=== PATIENT | male | born 1930 | race Caucasian/White ===

== ENCOUNTER 2016-11-26 11:22 | Inpatient (IN) | payer OTHER, BC ==
[~2016-11-26] VITALS: Ht 171.4 cm; Wt 66.7 kg
[~2016-11-26 11:22] MED LIST: ASCA500 PO; ASPEC325 PO; ATOR-22 PO; CHOL4POW6 PO; LISI-461 PO; NAPR1TAB48 PO; VIT B-12 PO
[2016-11-26] MEDS ORDERED: ONDANSETRON INJ 8 MG in DEXTROSE 5% 50ML 50 ML IV PRN (11:30)
[2016-11-26] MEDS ORDERED: ACETAMINOPHEN 325 MG TAB PO PRN (11:30)
[2016-11-26 12:00] VITALS: BP 151/120; TEMP 36.9
[2016-11-26 12:58] LABS: BASO % 0.2 %; BASO ABS # 0.02 K/uL (0-0.2); EOS % 0.9 %; HEMATOCRIT 32.3 % (42-52); IG% 0.1 %; LYMPH ABS # 1.82 K/uL (1.2-3.4); MEAN CORPUSCULAR HEMOGLOBIN 30.6 pg (25-34); MEAN PLATELET VOLUME 9.4 fL (7.4-10.4); MONO % 8.4 %; NEUT % 72.4 %; PLATELET COUNT 154 K/uL (130-400); RED BLOOD COUNT 3.33 M/uL (4.7-6.1); WHITE BLOOD COUNT 10.12 K/uL (4.8-10.8)
[2016-11-26 12:59] LABS: COMPLETE YES; MEAN CORPUSCULAR HGB CONC 31.6 g/dl (32-36)
[2016-11-26 13:08] LABS: INR 2.8 (0.9-1.1); PROTHROMBIN TIME (PATIENT) 31.3 SECONDS (9.0-12.0)
[2016-11-26 13:27] LABS: ALT/SGPT 40 U/L (12-78); AST/SGOT 25 U/L (15-37); BLOOD UREA NITROGEN 48 mg/dl (7-18); BUN/CREATININE RATIO 26.4 (10-20); CALCIUM 9.3 mg/dl (8.5-10.1); CARBON DIOXIDE 32 mmol/L (21-32); CHLORIDE 109 mmol/L (98-107); GLUCOSE 98 mg/dl (70-99); MAGNESIUM 2.3 mg/dl (1.8-2.4); POTASSIUM 4.3 mmol/L (3.5-5.1); SODIUM 146 mmol/L (136-145)
[2016-11-26 13:37] LABS: ALB/GLOB RATIO 1.1 (0.9-2); ALKALINE PHOSPHATASE 51 U/L (45-117)
--- NOTE | 2016-11-26 14:03 | DIAGNOSTIC IMAGING REPORT ---
CT HEAD WITHOUT CONTRAST (CT) CLINICAL HISTORY: Acute change in mental status COMPARISON STUDY: 05/13/2011 TECHNIQUE: Axial CT of the brain is performed from the vertex to the skull base. IV contrast was not administered for this examination. CT DOSE: 537.48 mGy.cm FINDINGS: No intra or extra-axial mass lesions are visualized. There is no CT evidence of acute cortical infarction. There is no evidence of midline shift. There is no acute hemorrhage. No calvarial fractures are visualized. There are patchy white matter hypodensities likely on a small vessel basis. There is no evidence of pathologic ventricular dilatation. There is no evidence of acute sinusitis IMPRESSION: No acute intracranial findings Electronically signed by: Gavino Vang M.D. 11/26/2016 2:02 PM Dictated Date/Time: 11/26/2016 1:57 PM
--- NOTE | 2016-11-26 14:18 | DIAGNOSTIC IMAGING REPORT ---
PA CHEST WITH ABDOMINAL SERIES CLINICAL HISTORY: Lower abdominal pain. FINDINGS: A PA chest radiograph is compared to study dated 02/15/2008. The examination is degraded by patient rotation. A 2-lead cardiac pacemaker is unchanged in position and partially obscures the left upper chest. The patient is status post midline sternotomy. The heart is enlarged and there is atherosclerotic calcification of the thoracic aorta. The pulmonary vasculature is noncongested. Emphysema and chronic interstitial thickening are similar to previous. There is no airspace consolidation or pleural effusion. No pneumothorax is seen. The skeletal structures are osteopenic. Degenerative change is seen throughout the thoracic spine. Supine and erect abdominal radiographs are correlated with abdominal CT dated 01/25/2014. Cholecystectomy clips are identified in the right upper quadrant. Numerous surgical clips are seen in the pelvis. There is a nonobstructed abdominal bowel gas pattern. No evidence of intraperitoneal free air is seen. There is advanced atherosclerotic calcification of the abdominal aorta and pelvic arteries. There is mild lumbosacral spondylosis and scoliosis. The bony pelvis appears intact. IMPRESSION: 1. Cardiomegaly and cardiac pacemaker. There is no radiographic evidence of congestive failure. 2. Emphysema. No airspace consolidation or pleural effusion is seen. 3. Nonobstructed abdominal bowel gas pattern. Electronically signed by: Bienvenido Ledbetter M.D. 11/26/2016 2:16 PM Dictated Date/Time: 11/26/2016 2:13 PM
[2016-11-26 15:01] VITALS: BP 182/62; PULSE 80
[2016-11-26 15:41] VITALS: Ht 171.4 cm; Wt 66.7 kg
[2016-11-26 15:57] VITALS: BP 149/69; PULSE 51; TEMP 36.6; O2SAT 96
[2016-11-26] MEDS: SODIUM CHLORIDE 0.9% 1000ML 1,000 ML IV SCH (16:23)
[2016-11-26] MEDS: WARFARIN SOD 4 MG TAB PO SCH (19:56)
[2016-11-26] MEDS: CARBIDOPA/LEVODOPA 25/100MG TAB PO SCH (19:57)
[2016-11-26] MEDS: MEMANTINE 10 MG TAB PO SCH (19:57)
--- NOTE | 2016-11-26 21:51 | HISTORY & PHYSICAL EXAMINATION ---
DATE OF ADMISSION: 11/26/2016 An 86-year-old male, admitted directly from my office with mental status changes. HISTORY OF PRESENT ILLNESS: The patient with multiple medical problems including coronary artery disease with history of 4-vessel coronary artery bypass graft, arterial hypertension, paroxysmal atrial fibrillation, bradyarrhythmia requiring pacemaker, history of prostate cancer status post radical prostatectomy, dementia and Parkinson's disease. He is also treated for arterial hypertension. The patient was brought to the office today by his , daughter and his caregiver. Over the last couple of days, his condition has deteriorated rapidly. His mental status has changed. He is very bradykinetic, not responding and completely confused. He was brought to the office because he was having diarrhea. His stated that he is incontinent of stool. They cannot keep him clean. They have to change him many times. She tried to give him an enema because she thought initially that he was constipated, but he would not cooperate. He was uncomfortable. He was having pain in the rectal area. According to the family, his condition has been deteriorating, both physically and mentally. He has not been able to ambulate. He needs the assistance of at least 2 people for minor tasks such as sitting or standing up. He needs help to get dressed and undressed. There has been no fever. No chills. He does not seem to be in any distress. He has not had any chest pain or any shortness of breath that is noticeable. He was having some lower abdominal pain. He has some pain in the rectal area. He is having difficulty sitting down. No urinary problem. There has been no suspicion of any pain in his back or extremities. I have been seeing him every week for the last 3 or 4 weeks. He has developed an ulcer on the right external malleolar area. We have been changing the dressing in the office. The ulcer has improved markedly and is almost completely healed. In the office, patient required the assistance of 3 people even to help him stand up and walk in the hallway. In view of the deterioration of his condition, arrangements were made for admission. PAST MEDICAL HISTORY: 1. Coronary artery disease, diagnosed back in 1989. 2. Coronary artery bypass graft; 4 vessels, done on 01/24/1991. He had a sequential saphenous vein graft to the PDA and posterior ventricular branch of the RCA. He had a left inferior epigastric artery to the obtuse marginal branch of the circumflex and a REIS to his LAD; this was done at [facility]. 3. Arterial hypertension, treated since approximately 1979. 4. History of nephrolithiasis back in the 1970s, with no recent episodes. 5. Hyperlipidemia, treated and well-controlled. His lipid profile has been in excellent range. 6. Bradyarrhythmia, requiring a pacemaker in 2007. 7. Paroxysmal atrial fibrillation; treated and controlled. He is on chronic anticoagulation with Coumadin. 8. Carcinoma of the prostate in 1993; had a radical prostatectomy at [facility]. 9. Laparoscopic cholecystectomy in 2000. 10. 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 11. Dementia, first detected about 2010 and his condition has been deteriorating. Recently, the deterioration has been much more rapid and pronounced. 12. Parkinson's disease, treated for the last 4-5 years. SOCIAL HISTORY: He is , has 2 children. No smoking, no alcohol. No excessive coffee, tea or soft drinks. He is retired. 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 FAMILY HISTORY: His mother at age 69, had dementia and she was diabetic. She had a shunt placed. She may had normal pressure hydrocephalus, I am not really sure. Father at age 76, had leukemia. He has a total of 5 siblings, half siblings and full siblings. One half sister is 95, still living independently. One brother at age 96, had dementia. One brother is 86, doing well. One sister is 82 and is doing well. Children are doing well. ALLERGIES: None. CURRENT MEDICATIONS: Include; 1. Atenolol 50 mg daily. 2. Lisinopril 10 mg daily. 3. Lipitor 10 mg daily. 4. Imdur 30 mg daily. 5. Coumadin 7.5 mg, he takes 1 tablet five days a week and 1.5 tablets on Tuesdays and Fridays. 6. Sinemet 25/100 two tablets 3 times a day. 7. Namenda 10 mg twice a day. 8. Aricept 10 mg daily. 9. Furosemide 40 mg daily. 10. Potassium chloride 10 mEq twice a day. 11. Nitrostat 0.4 mg daily. 12. Vitamin D3 1000 international units daily. 13. CoQ10 100 mg tablets, he takes four a day. 14. Aspirin 81 mg daily. 15. Alba-C 1000-51 daily. 16. Emmet-3 1000 mg daily. 17. Vitamin B12 500 mcg daily. REVIEW OF SYSTEMS: He does not seem to be in any distress, but definitely his mental status has deteriorated significantly. He does not answer questions. He is very bradykinetic. He denied any headache. He is definitely having problem with his balance and equilibrium. No chest pain. No shortness of breath. His appetite has declined. No nausea, no vomiting. He has lower abdominal pain as noted. Has liquid stool. No urinary problem. No pain in his back or extremities. PHYSICAL EXAMINATION: GENERAL: Well-developed, in no acute distress. His recorded weight is 66.7 kgs. His height is recorded as 171.5 cm, but actually his measurement in the office is more close to 167 cm. VITAL SIGNS: On arrival to the hospital, his first set of vital signs showed a blood pressure of 151/120, pulse was in the 50s, respirations 18, temperature 36.9 and oxygen saturation was 96% on room air. SKIN: Warm and dry. No rash. No bruising. HEENT: He usually wears glasses. No evidence of any mucosal abnormalities. Ears were normal. NECK: Supple and nontender. No adenopathy, no thyromegaly, no JVD. No carotid bruits. CHEST: Scar from prior bypass surgery. Pacemaker is in place. HEART: Regular heart sounds. Bradycardic. No evident murmur, rub or gallop. LUNGS: Clear. ABDOMEN: Soft and nontender, without organomegaly or masses. BACK: No spinal tenderness. EXTREMITIES: No edema, clubbing or cyanosis. The ulcer on the right external malleolar area is almost completely healed. Absent posterior tibialis pulses. Good dorsalis pedis pulses. NEUROLOGIC: He is awake and responsive, but markedly bradykinetic. He has problem with his balance and equilibrium. No evidence of any lateralized deficits, but we are dealing more with generalized weakness. He does have problem with his gait, usually related to his Parkinson's disease. GENITALIA: Normal. RECTAL: He had evidence of fecal impaction. Soft, liquidy stool was oozing around the fecaloma. ADMISSION LABORATORY TESTS: WBC count 10,120, hemoglobin 10.2, hematocrit 32.3 and platelet count 154,000. Prothrombin time 31.3, INR 2.8. Sodium 146, potassium 4.3, chloride 109, CO2 32, BUN 48, creatinine 1.8, glucose 98, calcium 9.3, magnesium 2.3, total bilirubin 0.9, AST 25, ALT 40, alkaline phosphatase 51, total protein 7.3, albumin 3.8, globulin 3.5, TSH 3.62, T4 7.9. His electrocardiogram showed sinus bradycardia, rate in the 50s. I am not really sure at this point what his pacemaker setting is, need to check on that. He does have diffuse ST segment T-wave abnormality. The tracing was in very poor quality because of the tremor. IMAGING STUDIES: Included a CT scan of the head without contrast which did not really show any significant abnormalities. His abdominal x-rays and chest x-rays showed cardiomegaly and a pacemaker. There was no congestive heart failure. He had evidence of emphysema, but no evidence of any consolidation. No evidence of any bowel obstruction. ASSESSMENT: 1. Mental status changes. 2. Dehydration. 3. Acute renal failure, superimposed on chronic kidney disease. 4. Coronary artery disease with a history of 4-vessel coronary artery bypass graft. 5. Paroxysmal atrial fibrillation. 6. Bradyarrhythmias requiring permanent pacemaker. 7. Dementia. 8. Hyperlipidemia. 9. Parkinson's disease. 10. History of prostate cancer. 11. History of type 2 diabetes mellitus, but has not required any drug therapy. 12. Ulcer, right lateral malleolar area, healing. 13. Fecaloma. 14. What the family was thinking that he has diarrhea actually is the oozing of soft liquid stool around the fecaloma. PLAN: The patient was admitted to a medical bed. His resuscitation level was discussed with his and his daughter. He does not desire any intubation or mechanical ventilation. Otherwise, he will be treated according to his wishes. All his laboratory tests were ordered. After I did his rectal examination at the hospital and in view of the presence of the fecaloma, I digitally evacuated the impaction. He was started on IV fluids with normal saline solution. He was continued on his oral medications, except for the Lasix and potassium. We will be monitoring his renal function and his electrolytes. With the hydration, we will see how his condition improves. Also checking urine for culture, sensitivity and urinalysis. I have to check on the settings in his pacemaker to make sure that the settings and what we see on the tracings coincide. Overall, his condition has been deteriorating. He requires a lot of attention and care at home. He lives at home with his . His daughter spends a lot of time with them. His grandson also spends a lot time with him. He has a caregiver. His son-in-law is also participating in his care. The plan at this time is to hydrate him. Try to determine the cause for his mental status changes. See how much improvement we get. Decide if he needs rehabilitation. As far as the ulcer on his right external malleolar area, we will continue the treatment. Actually, it is almost completely healed. Prior to that, it was quite deep and it was inflamed. All the findings, the workup and the plan of care were discussed with the patient, his and his daughter.
[2016-11-26 23:25] VITALS: BP 118/68; PULSE 50; TEMP 36.9; O2SAT 100
[2016-11-27] MEDS: SODIUM CHLORIDE 0.9% 1000ML 1,000 ML IV SCH ×3 (02:38→17:49)
[2016-11-27 06:22] LABS: BASO % 0.3 %; BASO ABS # 0.02 K/uL (0-0.2); COMPLETE YES; EOS % 3.2 %; HEMATOCRIT 29.7 % (42-52); IG% 0.1 %; LYMPH % 34.5 %; MEAN CELL VOLUME 97.4 fL (80-100); MEAN CORPUSCULAR HEMOGLOBIN 31.8 pg (25-34); MEAN CORPUSCULAR HGB CONC 32.7 g/dl (32-36); MEAN PLATELET VOLUME 9.8 fL (7.4-10.4); MONO % 10.2 %; NEUT % 51.7 %; PLATELET COUNT 126 K/uL (130-400); RED BLOOD COUNT 3.05 M/uL (4.7-6.1); WHITE BLOOD COUNT 7.54 K/uL (4.8-10.8)
[2016-11-27 06:26] LABS: INR 2.7 (0.9-1.1); PROTHROMBIN TIME (PATIENT) 29.7 SECONDS (9.0-12.0)
[2016-11-27 06:51] LABS: BUN/CREATININE RATIO 28.5 (10-20); CALCIUM 8.9 mg/dl (8.5-10.1); CREATININE 1.4 mg/dl (0.60-1.40); MAGNESIUM 2.2 mg/dl (1.8-2.4); POTASSIUM 3.8 mmol/L (3.5-5.1)
[2016-11-27 07:50] VITALS: BP 160/61; PULSE 50; TEMP 36.4; O2SAT 100
--- NOTE | 2016-11-27 07:58 | Clinical Documentation Query ---
QUERY 1 OF [address] CHERRY CLARK, In your clinical opinion is this patient being managed for: ( ) Metabolic encephalopathy ( ) Other explanation of clinical findings (Please Explain) ( ) Unable to determine (Please Define) ( ) Need to Discuss ( x) Not Agree The medical record reflects the following clinical findings, treatment, and risk factors. Clinical Indicators: 86 yo male presenting from physician office due to mental status changes and acute renal failure. Documentation reflects that pt is completely confused. CT head showed no acute findings. Na 146, BUN 48, Cr 1.80, BP 151/120 Treatment: IV fluids, CT head, UA and c/s, serial PRP's/CBC's and PT's, hold lasix and potassium Risk Factors: preexisting dementia, dehydration, MANFRED, hypertension In your clinical opinion is this patient being managed for: ( ) Chronic kidney disease, stage 2-3 ( ) Other explanation of clinical findings (Please Explain) ( ) Unable to determine (Please Define) ( ) Need to Discuss (x ) Not Agree The medical record reflects the following clinical findings, treatment, and risk factors. Clinical Indicators: Documentation reflects pt has chronic kidney disease. Review of GFR over the past 2 years showed range of 42.4-62.9. Treatment: monitor PRP's, treat comorbid conditions Risk Factors: age, CAD, HTN, A fib Please clarify and document your clinical opinion in the progress notes and discharge summary. Terms such as "probable", "suspected", "likely", "questionable", "possible", or "still to be ruled out" are acceptable. IF IN AGREEMENT, YOU MUST DOCUMENT ABOVE DIAGNOSTIC STATEMENT IN DAILY PROGRESS NOTES AND DISCHARGE SUMMARY. This document is not part of the patient's record. Thank You, Chery Eisenberg RN [phone]
[2016-11-27] MEDS: ATORVASTATIN 10 MG TAB PO SCH (07:59)
[2016-11-27] MEDS: CARBIDOPA/LEVODOPA 25/100MG TAB PO SCH ×2 (07:59→14:21)
[2016-11-27] MEDS: DONEPEZIL HCL 10 MG TAB PO SCH (07:59)
[2016-11-27] MEDS: LISINOPRIL 10 MG TAB PO SCH (07:59)
[2016-11-27] MEDS: ASPIRIN 81 MG ECTAB PO SCH (08:00)
[2016-11-27] MEDS: POLYETHYLENE (MIRALAX) 17 GM PACK PO SCH (08:00)
[2016-11-27] MEDS: CHOLECALCIFEROL 1000 INTER.UNIT TAB PO SCH (08:01)
[2016-11-27] MEDS: ISOSORBIDE MONONITRATE 30 MG TABCR PO SCH (08:01)
[2016-11-27] MEDS: MEMANTINE 10 MG TAB PO SCH (08:01)
[2016-11-27 15:37] VITALS: BP 138/73; PULSE 50; TEMP 36.5; O2SAT 100
[2016-11-27 16:00] VITALS: O2SAT 100
[2016-11-27] MEDS: WARFARIN SOD 4 MG TAB PO SCH (16:09)
[2016-11-27 23:56] VITALS: BP 116/66; PULSE 70; TEMP 37; O2SAT 98
[2016-11-28] MEDS: SODIUM CHLORIDE 0.9% 1000ML 1,000 ML IV SCH ×3 (04:04→23:06)
--- NOTE | 2016-11-28 04:04 | PROGRESS NOTE ---
DATE: 11/27/2016 An 86-year-old male, admitted with multiple problems including mental status changes, dehydration, acute renal failure superimposed on chronic kidney disease, coronary artery disease, paroxysmal atrial fibrillation, dementia, Parkinson's disease and stool impaction. The patient was admitted. All his laboratory tests were ordered. He was disimpacted manually. Physical and occupational therapies were ordered. His mental status has improved. He is more communicative. He denied any discomfort. No headache. No dizziness. No chest pain, no shortness of breath. No abdominal pain, no nausea, no vomiting. He did have bowel movements. No urinary problem. No pain in his back or extremities. PHYSICAL EXAMINATION: GENERAL: Well-developed, in no distress. VITAL SIGNS: Blood pressure 160/61, pulse 50, respirations 16, temperature 36.4 and oxygen saturation 100% on room air. SKIN: Warm and dry. No rash. HEENT: He usually wears glasses. No mucosal abnormalities. NECK: No JVD, no adenopathy. HEART: Regular heart sounds. No evident murmur, rub or gallop. LUNGS: Clear. ABDOMEN: Soft and nontender. BACK: Evidence of kyphosis. EXTREMITIES: No edema, clubbing or cyanosis. LABORATORY TESTS: WBC count 7540, hemoglobin 9.7, hematocrit 29.7 and platelet count 126,000. Prothrombin time 29.7, INR 2.7. Sodium 145, potassium 3.8, chloride 111, CO2 30, BUN 40, creatinine 1.4, glucose 87, calcium 8.9 and magnesium 2.2. ASSESSMENT: 1. Mental status changes. 2. Dehydration. 3. Acute renal failure. 4. Dementia. 5. Parkinson's disease. 6. Paroxysmal atrial fibrillation. 7. Fecal impaction. PLAN: 1. Continuing the same medications. 2. Physical therapy was ordered. Occupational therapy was ordered. 3. Continue hydration. 4. His BUN and creatinine have improved. 5. The ulcer on his right lateral malleolar area was treated. 6. I anticipate that the patient will return home after his acute hospitalization.
[2016-11-28 04:32] LABS: URINE APPEARANCE CLEAR (CLEAR); URINE BILIRUBIN NEG (NEG); URINE COLOR YELLOW; URINE NITRITE NEG (NEG); URINE SPECIFIC GRAVITY 1.011 (1.000-1.030); UROBILINOGEN NEG (NEG)
[2016-11-28 04:33] LABS: MANUAL MICROSCOPIC REQUIRED? NO; REVIEW REQ? NO
[2016-11-28 06:25] LABS: BASO % 0.2 %; BASO ABS # 0.02 K/uL (0-0.2); COMPLETE YES; EOS % 3.7 %; HEMATOCRIT 29.9 % (42-52); IG% 0.2 %; LYMPH ABS # 3.06 K/uL (1.2-3.4); MEAN CELL VOLUME 95.8 fL (80-100); MEAN CORPUSCULAR HEMOGLOBIN 32.1 pg (25-34); MEAN CORPUSCULAR HGB CONC 33.4 g/dl (32-36); MONO % 8.4 %; NEUT % 55.5 %; PLATELET COUNT 140 K/uL (130-400); RED BLOOD COUNT 3.12 M/uL (4.7-6.1); WHITE BLOOD COUNT 9.56 K/uL (4.8-10.8)
[2016-11-28 06:39] LABS: INR 2.9 (0.9-1.1); PROTHROMBIN TIME (PATIENT) 32.4 SECONDS (9.0-12.0)
[2016-11-28 06:58] LABS: BUN/CREATININE RATIO 21.8 (10-20); CALCIUM 8.7 mg/dl (8.5-10.1); CREATININE 1.5 mg/dl (0.60-1.40); POTASSIUM 3.9 mmol/L (3.5-5.1)
[2016-11-28 07:15] VITALS: BP_SYST 178; BP_SYST 192; BP_DIAS 67; BP_DIAS 70; PULSE 90; TEMP 36.7; O2SAT 100
[2016-11-28 09:05] VITALS: BP 112/57
[2016-11-28] MEDS: ATORVASTATIN 10 MG TAB PO SCH (09:05)
[2016-11-28] MEDS: CARBIDOPA/LEVODOPA 25/100MG TAB PO SCH ×4 (09:05→19:43)
[2016-11-28] MEDS: ASPIRIN 81 MG ECTAB PO SCH (09:05)
[2016-11-28] MEDS: MEMANTINE 10 MG TAB PO SCH ×3 (09:05→19:43)
[2016-11-28] MEDS: CHOLECALCIFEROL 1000 INTER.UNIT TAB PO SCH (09:06)
[2016-11-28] MEDS: POLYETHYLENE (MIRALAX) 17 GM PACK PO SCH (09:06)
[2016-11-28] MEDS: LISINOPRIL 10 MG TAB PO SCH (09:06)
[2016-11-28] MEDS: DONEPEZIL HCL 10 MG TAB PO SCH (09:06)
[2016-11-28] MEDS: ISOSORBIDE MONONITRATE 30 MG TABCR PO SCH (09:06)
[2016-11-28 15:16] VITALS: BP 112/56; PULSE 58; TEMP 36.7; O2SAT 98
[2016-11-28] MEDS: WARFARIN SOD 4 MG TAB PO SCH (16:03)
[2016-11-28 23:01] VITALS: BP 148/69; PULSE 62; TEMP 36.8; O2SAT 96
[2016-11-29 05:39] LABS: BASO % 0.3 %; BASO ABS # 0.03 K/uL (0-0.2); COMPLETE YES; EOS % 4.7 %; IG% 0.1 %; LYMPH % 20.8 %; LYMPH ABS # 2.17 K/uL (1.2-3.4); MEAN CELL VOLUME 95.6 fL (80-100); MEAN CORPUSCULAR HEMOGLOBIN 32.1 pg (25-34); MEAN CORPUSCULAR HGB CONC 33.6 g/dl (32-36); MEAN PLATELET VOLUME 10.1 fL (7.4-10.4); MONO % 7.4 %; NEUT % 66.7 %; PLATELET COUNT 138 K/uL (130-400); RED BLOOD COUNT 2.93 M/uL (4.7-6.1); WHITE BLOOD COUNT 10.42 K/uL (4.8-10.8)
[2016-11-29 05:49] LABS: INR 2.8 (0.9-1.1); PROTHROMBIN TIME (PATIENT) 31.6 SECONDS (9.0-12.0)
[2016-11-29 06:13] LABS: BUN/CREATININE RATIO 19.6 (10-20); CALCIUM 8.7 mg/dl (8.5-10.1); CREATININE 1.2 mg/dl (0.60-1.40); POTASSIUM 3.7 mmol/L (3.5-5.1)
[2016-11-29 07:14] VITALS: BP 134/71; PULSE 69; TEMP 36.4; O2SAT 94
[2016-11-29] MEDS: MEMANTINE 10 MG TAB PO SCH ×2 (08:36→20:12)
[2016-11-29] MEDS: CARBIDOPA/LEVODOPA 25/100MG TAB PO SCH ×3 (08:36→20:13)
[2016-11-29] MEDS: ATORVASTATIN 10 MG TAB PO SCH (08:37)
[2016-11-29] MEDS: ISOSORBIDE MONONITRATE 30 MG TABCR PO SCH (08:37)
[2016-11-29] MEDS: ASPIRIN 81 MG ECTAB PO SCH (08:37)
[2016-11-29] MEDS: POLYETHYLENE (MIRALAX) 17 GM PACK PO SCH (08:37)
[2016-11-29] MEDS: LISINOPRIL 10 MG TAB PO SCH (08:37)
[2016-11-29] MEDS: DONEPEZIL HCL 10 MG TAB PO SCH (08:37)
[2016-11-29] MEDS: CHOLECALCIFEROL 1000 INTER.UNIT TAB PO SCH (08:38)
[2016-11-29] MEDS: SODIUM CHLORIDE 0.9% 1000ML 1,000 ML IV SCH ×2 (08:38→19:16)
[2016-11-29 14:57] VITALS: BP 102/64; PULSE 102; TEMP 36.8; O2SAT 93
[2016-11-29] MEDS: WARFARIN SOD 4 MG TAB PO SCH (15:37)
--- NOTE | 2016-11-29 19:20 | PROGRESS NOTE ---
DATE: 11/29/2016 DATE: 11/29/2016. SUBJECTIVE: An 86-year-old male admitted with mental status changes. He also has Parkinson disease and dementia. He also has coronary artery disease, history of atrial fibrillation and has a permanent pacemaker. The patient was dehydrated. He also had fecal impaction. He was treated with IV fluids. Also, he was disimpacted. Physical and occupational therapies were ordered. He remains with significant functional decline. He does require 2-person to get him out of bed and moving him. He is resting. Denied any distress. No discomfort. No headache. No chest pain, no shortness of breath. No abdominal pain, no nausea, no vomiting. Poor appetite. No urinary problem. No pain in his back or extremities. PHYSICAL EXAMINATION: GENERAL: Well developed. He is resting. He was sitting in the chair. VITAL SIGNS: Blood pressure 134/71, pulse 69, respiration 18, temperature 36.4, oxygen saturation 94% on room air. SKIN: Warm and dry. No rash. HEAD, EYES, EARS, NOSE, AND THROAT: No mucosal abnormality. NECK: No JVD, no adenopathy. HEART: Regular heart sounds. LUNGS: Clear. ABDOMEN: Soft, nontender. BACK: No spinal tenderness. EXTREMITIES: No edema, clubbing, or cyanosis. Dressing lateral malleolar area because he has an ulcer at this spot. TODAY'S LABORATORY TESTS: WBC count 10,420, hemoglobin 9.4, hematocrit 28%, platelet count 138,000. Sodium 146, potassium 3.7, chloride 113, CO2 28, BUN 23, creatinine 1.2, glucose 87, calcium 8.7. His urine culture is negative. ASSESSMENT: 1. Mental status changes. 2. Dehydration. 3. Dementia. 4. Parkinson's disease. 5. Coronary artery disease. 6. Paroxysmal atrial fibrillation. 7. Permanent pacemaker. 8. Pressure ulcer right heel lateral malleolar area. PLAN: 1. Continuing the same medications. 2. Continue with his therapy. 3. Working on his discharge planning. Case management had a meeting yesterday with his daughter and his . Considering [facility]. We have to try to finalize his discharge planning because given his condition and declining functional ability the only 2 choices we have either enough help can be provided at home to keep him at home or the other option will be for extended care facility placement. Discussions will continue with the family and see what the best situation for them and for him.
[2016-11-29 22:58] VITALS: BP 115/54; PULSE 91; TEMP 36.9; O2SAT 98
[2016-11-30] MEDS: SODIUM CHLORIDE 0.9% 1000ML 1,000 ML IV SCH ×2 (05:27→17:03)
--- NOTE | 2016-11-30 07:11 | PROGRESS NOTE ---
DATE: 11/28/2016 SUBJECTIVE: An 86-year-old male admitted with mental status changes and dehydration. He has multiple other problems including coronary artery disease, paroxysmal atrial fibrillation, Parkinson's disease, dementia, and general debilitation. The patient was admitted. He was started on IV fluid. His creatinine was elevated to 1.8. He was continued on his oral medications. Physical and occupational therapies were ordered. The patient seems to be resting comfortably. No headache. No dizziness. Denied any chest pain. No shortness of breath. No abdominal pain, no nausea, and no vomiting. No problem with his bowel movement since he was admitted. When he was admitted, his family thought that he was having diarrhea, but actually he had fecal impaction and the stool was oozing around the fecaloma. He was disimpacted manually. Denied any urinary problem. No pain in his back. He does have an ulcer on his right lateral malleolar area and dressing is being applied. PHYSICAL EXAMINATION: GENERAL: Well developed in no distress. VITAL SIGNS: Blood pressure 178/70, pulse 90, respirations 18, temperature 36.7, and oxygen saturation 100% on room air. SKIN: Warm and dry. No rash. HEENT: He does have a newly noticed right subconjunctival hemorrhage in the right eye. He is not complaining of any problem related to that. NECK: Supple without lymph node or thyroid enlargement. No JVD. HEART: Regular heart sounds. No evident murmur, rub, or gallop. LUNGS: Clear. ABDOMEN: Soft and nontender. BACK: No spinal tenderness. EXTREMITIES: No edema, clubbing, or cyanosis. Dressing over the right lateral malleolar ulcer area. NEUROLOGIC: He is confused. His mental status is consistent with his dementia. He does not have any lateralized deficit. He needs 2 people assistant manager/embalmer to get him in and out of bed. When he stands up, he can walk with his walker. TODAY'S LABORATORY TESTS: WBC count 9560, hemoglobin 10, hematocrit 29.9, and platelet count 140,000. Sodium 145, potassium 3.9, chloride 111, CO2 of 25, BUN 33, creatinine 1.5, glucose 86, and calcium 8.7. INR 2.9. His urinalysis does not show any evidence of any infection. ASSESSMENT: 1. Mental status changes. 2. Dehydration. 3. Acute renal failure superimposed on chronic kidney disease. 4. Parkinson's disease. 5. Dementia. 6. Coronary artery disease. 7. Paroxysmal atrial fibrillation. 8. Pacemaker in place. 9. General debilitation. 10. New right conjunctival bleed, right eye. PLAN: 1. Continuing the same medications and IVs. 2. Continue therapies. 3. I spoke with his daughter this morning who was in his room. 4. There is a major issue as far as his mental condition, his physical ability and his debilitation and the fact that he needs assistance with almost every activity. It is misleading that when he gets up and using his walker, he can walk, but to get him in and out of bed, take him to the bathroom, care for him in every detail it has been taking a toll on the entire family. At home, his and his daughter, his son-in-law and his grandson all provide care for him. Also, they have a caregiver that comes in for a few hours every day 5 days a week. Case management consultation has been requested. We need to set up a meeting with Mrs. Sosa, his and with his daughter, Angie. They need to express all the issues regarding his care. He definitely will need more assistance at home for his sake and also to alleviate some of the pressure and the demands on his family. We will ask case management to meet with the daughter and the and take any necessary steps to help with that.
[2016-11-30 07:50] VITALS: BP 109/69; PULSE 54; TEMP 36.8; O2SAT 97
[2016-11-30] MEDS: CARBIDOPA/LEVODOPA 25/100MG TAB PO SCH ×3 (07:52→19:43)
[2016-11-30] MEDS: ISOSORBIDE MONONITRATE 30 MG TABCR PO SCH (07:52)
[2016-11-30] MEDS: ATORVASTATIN 10 MG TAB PO SCH (07:52)
[2016-11-30] MEDS: ASPIRIN 81 MG ECTAB PO SCH (07:52)
[2016-11-30] MEDS: DONEPEZIL HCL 10 MG TAB PO SCH (07:52)
[2016-11-30] MEDS: LISINOPRIL 10 MG TAB PO SCH (07:53)
[2016-11-30] MEDS: POLYETHYLENE (MIRALAX) 17 GM PACK PO SCH (07:53)
[2016-11-30] MEDS: MEMANTINE 10 MG TAB PO SCH ×2 (07:53→19:43)
[2016-11-30] MEDS: CHOLECALCIFEROL 1000 INTER.UNIT TAB PO SCH (07:53)
[2016-11-30 15:32] VITALS: BP 136/60; PULSE 88; TEMP 36.7; O2SAT 92
[2016-11-30] MEDS: WARFARIN SOD 4 MG TAB PO SCH (17:06)
--- NOTE | 2016-11-30 21:37 | PROGRESS NOTE ---
DATE: 11/30/2016 An 86-year-old male, admitted with mental status changes and dehydration. He has dementia and Parkinson's disease. He has coronary artery disease and atrial fibrillation. He is chronically anticoagulated with Coumadin. He also had acute renal failure superimposed on his chronic kidney disease. The patient was admitted. He was hydrated. Therapies were ordered. Overall, his condition has improved. His BUN and creatinine have improved. He is tolerating his therapies. He is able to ambulate with his walker. His confusion and findings related to his dementia persist. He denied any headache. No dizziness. No chest pain. No shortness of breath. No abdominal pain, nausea or vomiting. He is having bowel movements. No problem urinating. No pain in his back or extremities. PHYSICAL EXAMINATION: GENERAL: Well-developed, in no distress. VITAL SIGNS: Blood pressure 109/69, pulse 54, respirations 20, temperature 36.8 and oxygen saturation 97% on room air. SKIN: Warm and dry. No rash. HEENT: No mucosal abnormalities. NECK: No JVD. No adenopathy. HEART: Regular heart sounds. LUNGS: Clear. ABDOMEN: Soft and nontender. BACK: No spinal tenderness. EXTREMITIES: No edema, clubbing or cyanosis. ASSESSMENT: 1. Mental status changes. He is back to his baseline, especially in the afternoon. 2. Dehydration. 3. Acute renal failure. 4. Chronic kidney disease. 5. Coronary artery disease. 6. Dementia. 7. Parkinson's disease. PLAN: 1. Continuing his same medications. 2. We are working on getting him to [facility]. 3. The plan is for him to go back home after his rehabilitation. I called his at home this evening. I was sitting in the room with the presence of the patient, his daughter and his son-in-law. The main issue at this time is he needs more help at home. His agreed and she is going to be working on getting enough help in order to be able to keep him home.
[2016-11-30 23:55] VITALS: BP 132/63; PULSE 60; TEMP 37.2; O2SAT 95
[2016-12-01] MEDS: SODIUM CHLORIDE 0.9% 1000ML 1,000 ML IV SCH (01:30)
[2016-12-01 06:13] LABS: BASO % 0.2 %; BASO ABS # 0.02 K/uL (0-0.2); COMPLETE YES; EOS % 5.6 %; HEMATOCRIT 27.5 % (42-52); IG% 0.2 %; LYMPH % 29.4 %; LYMPH ABS # 2.62 K/uL (1.2-3.4); MEAN CELL VOLUME 95.8 fL (80-100); MEAN CORPUSCULAR HEMOGLOBIN 32.8 pg (25-34); MEAN CORPUSCULAR HGB CONC 34.2 g/dl (32-36); MEAN PLATELET VOLUME 9.5 fL (7.4-10.4); NEUT % 55.6 %; PLATELET COUNT 129 K/uL (130-400); RED BLOOD COUNT 2.87 M/uL (4.7-6.1); WHITE BLOOD COUNT 8.92 K/uL (4.8-10.8)
[2016-12-01 07:04] LABS: CALCIUM 8.5 mg/dl (8.5-10.1); CREATININE 1.2 mg/dl (0.60-1.40); POTASSIUM 3.4 mmol/L (3.5-5.1)
[2016-12-01 07:06] LABS: ALB/GLOB RATIO 0.9 (0.9-2)
[2016-12-01 07:32] VITALS: BP 118/50; PULSE 50; TEMP 36.6; O2SAT 100
[2016-12-01] MEDS: CARBIDOPA/LEVODOPA 25/100MG TAB PO SCH ×2 (10:07→12:07)
[2016-12-01] MEDS: CHOLECALCIFEROL 1000 INTER.UNIT TAB PO SCH (10:07)
[2016-12-01] MEDS: LISINOPRIL 10 MG TAB PO SCH (10:07)
[2016-12-01] MEDS: MEMANTINE 10 MG TAB PO SCH (10:07)
[2016-12-01] MEDS: DONEPEZIL HCL 10 MG TAB PO SCH (10:08)
[2016-12-01] MEDS: ATORVASTATIN 10 MG TAB PO SCH (10:08)
[2016-12-01] MEDS: POLYETHYLENE (MIRALAX) 17 GM PACK PO SCH ×3 (10:08→12:10)
[2016-12-01] MEDS: ISOSORBIDE MONONITRATE 30 MG TABCR PO SCH (10:08)
[2016-12-01] MEDS: ASPIRIN 81 MG ECTAB PO SCH (10:08)
[2016-12-01 10:11] VITALS: PULSE 50
[2016-12-01] MEDS ORDERED: CMD4 PO (10:47)
[2016-12-01] MEDS ORDERED: IMDSR30 PO (10:47)
[2016-12-01] MEDS ORDERED: MRLP17 PO (10:47)
[2016-12-01] MEDS ORDERED: ASPEC81 PO (10:47)
[2016-12-01] MEDS ORDERED: TYL325X PO (10:47)
[2016-12-01] MEDS ORDERED: SNM/25100 PO (10:47)
[2016-12-01] MEDS ORDERED: NMN10 PO (10:47)
[2016-12-01] MEDS ORDERED: VTMD1000 PO (10:47)
[2016-12-01] MEDS ORDERED: ARC10 PO (10:47)
[2016-12-01] MEDS ORDERED: TNR50 PO (10:47)
--- NOTE | 2016-12-01 10:55 | Discharge Instructions ---
Discharge Instructions Date of Service December 01, 2016. Admission Reason for Admission: MENTAL STATUS CHANGES DEHYDRATION ACUTE RENAL INSUFFICIENCY FECAL IMPACTION PARKINSON'S DISEASE DEMENTIA CORONARY ARTERY DISEASE PERMANENT PACEMAKER PAROXYSMAL ATRIAL FIBRILLATION CHRONIC ANTICOAGULATION WITH COUMADIN ULCER RIGHT LATERAL MALLEOLAR AREA Discharge Discharge Diagnosis / Problem: MENTAL STATUS CHANGES. DEHYDRATION. DEMENTIA. PARKINSON'S.CORONARY ARTERY D Discharge Goals Goal(s): Decrease discomfort, Improve function, Increase independence, Improve disease control, Improve nutritional status Activity Recommendations Activity Level: Assistance Required Therapies: Physical Therapy, Occupational Therapy . Additional Information Patient informed of condition: Yes Advance Directives: No DNR: No Level of Care: Acute Rehab Communicable Disease: No Prognosis: Deteriorating Ross Catheter: No Instructions / Follow-Up Instructions / Follow-Up PLEASE MONITOR PROTHROMBIN TIME RIGHT LATERAL MALLEOLAR AREA ULCER CARE Current Hospital Diet Patient's current hospital diet: AHA Diet (Heart Healthy) Discharge Diet Recommended Diet: AHA Diet (Heart Healthy) Pending Studies Studies pending at discharge: no Physician Orders On Transfer Dressing Changes: RIGHT LATERAL MALLEOLAR AREA ULCER Medical Emergencies . Who to Call and When: Medical Emergencies: If at any time you feel your situation is an emergency, please call 911 immediately. . Non-Emergent Contact Non-Emergency issues call your: Primary Care Provider . . "Provider Documentation" section prepared by Quincy Larson. . Core Measure Problem Core Measures: None
[2016-12-01 11:19] VITALS: BP 118/50; PULSE 50; TEMP 36.6; O2SAT 100
[2016-12-01] MEDS ORDERED: POTASSIUM CHLORIDE 10 MEQ TABCR PO ONE ×2 (12:00→20:30)
[2016-12-01] MEDS ORDERED: NURSING VERBAL MED ORDER ONE (12:00)
--- NOTE | 2016-12-01 23:28 | PROGRESS NOTE ---
DATE: 12/01/2016 An 86-year-old male admitted with mental status changes and dehydration. He also has multiple problems including Parkinson's disease, dementia, coronary artery disease, and he also had fecal impaction. The patient was admitted. He was hydrated with IV fluid. His creatinine returned to normal. He required manual disimpaction. Overall, his condition remained the same as far as his mental status. He is responsive and answers appropriately, but he is quite forgetful and he does have dementia. He requires assistance with his activity. He denied any headache. No dizziness. No chest pain. No shortness of breath. No abdominal pain, no nausea, no vomiting. No problem with his bowel movements or urination. No pain in his back. He does have an ulcer over the lateral malleolar area on the right side. PHYSICAL EXAMINATION: GENERAL: Well developed, in no distress. VITAL SIGNS: Blood pressure 118/50, pulse 50, respiration 20, temperature 36.6, oxygen saturation 100% on room air. SKIN: Warm and dry. No rash. HEENT: No mucosal abnormalities. NECK: No JVD, no adenopathy. HEART: Regular heart sounds. LUNGS: Clear. ABDOMEN: Soft, nontender. EXTREMITIES: No edema, clubbing or cyanosis. Dressing right lateral malleolar area. LABORATORY TESTS: WBC count 8920, hemoglobin 9.4, hematocrit 27.5, platelet count 129,000. Sodium 146, potassium 3.4, chloride 115, CO2 of 24, BUN 17, creatinine 1.2, glucose 88, calcium 8.5, total bilirubin 0.6, AST 27, ALT 16, alkaline phosphatase 57, total protein 5.7, albumin 2.0. ASSESSMENT: 1. Mental status changes. 2. Dehydration. 3. Acute renal failure, resolved. 4. Fecal impaction. 5. Parkinson's disease. 6. Dementia. 7. Coronary artery disease. PLAN: 1. Overall, his condition is stable. 2. He does require assistance with any of his activities. 3. He is able to walk using his walker once he is up and stabilized. 4. Continuing the same medications. 5. The patient has been accepted to go to [facility]. 6. Anticipating that he will go home after his hospitalization at rehab with additional help at home.
--- NOTE | 2016-12-13 22:47 | DISCHARGE SUMMARY ---
DISCHARGE DIAGNOSES: 1. Mental status changes. 2. Dehydration. 3. Acute renal insufficiency. 4. Fecal impaction. 5. Parkinson's disease. 6. Dementia. 7. Coronary artery disease. 8. Permanent pacemaker. 9. Paroxysmal atrial fibrillation. 10. Ulcers, right lateral malleolar area. 11. Chronic anticoagulation with Coumadin. DISCHARGE MEDICATIONS: Include: 1. Tylenol 650 mg every four hours as needed. 2. Aspirin 81 mg daily. 3. Atenolol 50 mg daily. 4. Vitamin D 1000 international units daily. 5. Aricept 10 mg daily. 6. Imdur 30 mg daily. 7. Sinemet 25/100 two tablets 3 times a day. 8. Namenda 10 mg twice a day. 9. MiraLax 17 grams daily. 10. Coumadin 4 mg daily. 11. Vitamin C 500 mg daily. 12. Lipitor 20 mg daily. 13. Lisinopril 10 mg daily. 14. Vitamin B12 one tablet daily. HISTORY OF PRESENT ILLNESS: An 86-year-old male, admitted directly from the office with mental status changes. The patient with multiple problems as noted above. He was brought to the office by his , daughter and his caregiver. Over the last couple of days prior to his admission, his condition has deteriorated rapidly. His mental status has changed. He was very bradykinetic, not responding, very confused. He was brought to the office because he was having diarrhea. His stated that he has been incontinent of stool. They are having problems keeping him clean. They have to change his clothing many times. She tried to give him an enema and she thought initially that he was constipated, but he would not cooperate. He was uncomfortable. He was having pain in the rectal area. His condition has been deteriorating, both physically and mentally. He has not been able to ambulate. He needed assistance of at least two people for minor tasks. He needed help to get dressed and undressed. He had no fever, no chills. He did not seem to be in any acute distress. His condition has definitely deteriorated, because of mental status changes he was admitted for further evaluation. PAST MEDICAL HISTORY, SOCIAL HISTORY AND FAMILY HISTORY: All as noted. ALLERGIES: None. MEDICATIONS ON ADMISSION: All as noted. PHYSICAL EXAMINATION AND ADMISSION LABORATORY TESTS: All as noted. HOSPITAL COURSE: The patient was admitted to a medical bed. Resuscitation level was discussed with his and his daughter. They did not desire any intubation or mechanical ventilation. His laboratory tests were ordered. His rectal examination showed evidence of fecal impaction. Soft liquidy stool was oozing around the fecaloma. He was digitally disimpacted. He was started on IV fluids. He was continued on his oral medications except for the Lasix and the potassium. His laboratory tests were monitored. Physical and occupational therapies were ordered. The main issue remained with his mental status changes. He was very subdued and very bradykinetic. He cannot really do anything on his own. He needs to be directed and assisted. His renal function has improved with hydration. His creatinine did go back to normal. He was tolerating his therapies. His diet was tolerated. There was no evidence of any distress or any discomfort. The main issue was with his needs as far as care. He does have one caregiver at home, also his , daughter, son-in-law and his grandson; they all participate in his care at home. I had multiple discussions with all members of the family including his daughter, his son-in-law and also I spoke with his . The options are either for him to have more help at home as close to 24 hours a day as possible or he would need to go to a nursing facility. Arrangements were made for him to go to [facility]. In the meantime, his family is going to work on arranging more help at home. Hopefully, if that is assured and his condition permits it then he will be able to go back home. Otherwise, consideration for an extended care facility will have to be considered seriously. The patient was transferred to [facility]. Medications as noted above. Further decisions as far as him going back home depending on how much improvement he exhibits at the rehab hospital.
[2016-12-16] MEDS ORDERED: FURO20TA PO (09:14)
[2016-12-18] MEDS ORDERED: CEPH500C2 PO (10:24)
[2017-05-04] MEDS ORDERED: CEPH500C PO (11:36)
== END 2016-12-01 13:29 | DRG 684 ==
LOC: C.4E 11:43
PROVIDERS: ADMIT Internal Medicine; ATTEND Internal Medicine
DX: N17.9 Acute kidney failure, unspecified (principal); R41.82 Altered mental status, unspecified; E86.0 Dehydration; K56.41 Fecal impaction; G20 Parkinson's disease; F02.80 Dementia in other diseases classified elsewhere, unspecified severity, without behavioral disturbance, psychotic disturbance, mood disturbance, and anxiety; I25.10 Atherosclerotic heart disease of native coronary artery without angina pectoris; I48.0 Paroxysmal atrial fibrillation; N18.9 Chronic kidney disease, unspecified; R53.81 Other malaise; H11.30 Conjunctival hemorrhage, unspecified eye; E11.22 Type 2 diabetes mellitus with diabetic chronic kidney disease; I12.9 Hypertensive chronic kidney disease with stage 1 through stage 4 chronic kidney disease, or unspecified chronic kidney disease; K38.1 Appendicular concretions; Z79.02 Long term (current) use of antithrombotics/antiplatelets; Z79.01 Long term (current) use of anticoagulants; Z95.0 Presence of cardiac pacemaker; Z79.82 Long term (current) use of aspirin; Z79.899 Other long term (current) drug therapy; Z95.1 Presence of aortocoronary bypass graft; Z85.46 Personal history of malignant neoplasm of prostate; Z90.79 Acquired absence of other genital organ(s)

== ENCOUNTER → 2016-12-25 | Outpatient (CLI) | payer OTHER, BC ==
[~2016-12-25] MED LIST changes: +ARC10 PO; -ASPEC325 PO; +ASPEC81 PO; +CEPH500C PO; +CEPH500C2 PO; -CHOL4POW6 PO; +CMD4 PO; +FURO20TA PO; +IMDSR30 PO; +MRLP17 PO; -NAPR1TAB48 PO; +NMN10 PO; +SNM/25100 PO; +TNR50 PO; +TYL325X PO; +VTMD1000 PO
[2016-12-25 13:06] LABS: INR 1.9 (0.9-1.1); PROTHROMBIN TIME (PATIENT) 21.1 SECONDS (9.0-12.0)
== END | disposition home or self-care (01) ==
LOC: C.LABSPEC 12:28
PROVIDERS: ATTEND Internal Medicine
DX: Z79.01 Long term (current) use of anticoagulants (principal)

== ENCOUNTER → 2017-01-01 | Outpatient (CLI) | payer OTHER, BC ==
[2017-01-01 14:20] LABS: INR 2.7 (0.9-1.1); PROTHROMBIN TIME (PATIENT) 30.5 SECONDS (9.0-12.0)
== END | disposition home or self-care (01) ==
LOC: C.LABSPEC 15:43
PROVIDERS: ATTEND Internal Medicine
DX: Z79.01 Long term (current) use of anticoagulants (principal); I48.91 Unspecified atrial fibrillation

== ENCOUNTER → 2017-01-15 | Outpatient (CLI) | payer OTHER, BC ==
[~2017-01-15] MED LIST changes: -CEPH500C2 PO
[2017-01-15 12:47] LABS: PROTHROMBIN TIME (PATIENT) 34.1 SECONDS (9.0-12.0)
== END | disposition home or self-care (01) ==
LOC: C.LABSPEC 12:15
PROVIDERS: ATTEND Internal Medicine
DX: Z51.81 Encounter for therapeutic drug level monitoring (principal); Z79.01 Long term (current) use of anticoagulants; I48.91 Unspecified atrial fibrillation

== ENCOUNTER → 2017-02-05 | Outpatient (CLI) | payer OTHER, BC ==
[2017-02-05 13:21] LABS: PROTHROMBIN TIME (PATIENT) 33.9 SECONDS (9.0-12.0)
== END | disposition home or self-care (01) ==
LOC: C.LABSPEC 10:30
PROVIDERS: ATTEND Internal Medicine
DX: I48.91 Unspecified atrial fibrillation (principal)

== ENCOUNTER → 2017-02-12 | Outpatient (CLI) | payer OTHER, BC ==
[2017-02-12 12:42] LABS: HEMATOCRIT 31.8 % (42-52); MEAN CORPUSCULAR HEMOGLOBIN 31.1 pg (25-34); MEAN PLATELET VOLUME 10.6 fL (7.4-10.4); PLATELET COUNT 141 K/uL (130-400); RED BLOOD COUNT 3.28 M/uL (4.7-6.1); WHITE BLOOD COUNT 6.02 K/uL (4.8-10.8)
[2017-02-12 12:44] LABS: MEAN CORPUSCULAR HGB CONC 32.1 g/dl (32-36)
[2017-02-12 12:47] LABS: BLOOD UREA NITROGEN 31 mg/dl (7-18); BUN/CREATININE RATIO 20.4 (10-20); CALCIUM 9.3 mg/dl (8.5-10.1); CARBON DIOXIDE 33 mmol/L (21-32); CHLORIDE 106 mmol/L (98-107); GLUCOSE 88 mg/dl (70-99); SODIUM 142 mmol/L (136-145)
[2017-02-12 12:52] LABS: INR 2.3 (0.9-1.1)
== END | disposition home or self-care (01) ==
LOC: C.LABSPEC 12:10
PROVIDERS: ATTEND Internal Medicine
DX: Z01.810 Encounter for preprocedural cardiovascular examination (principal); Z45.010 Encounter for checking and testing of cardiac pacemaker pulse generator [battery]; I49.5 Sick sinus syndrome

== ENCOUNTER 2017-02-16 09:49 | Day surgery (SDC) | payer OTHER, BC ==
[~2017-02-16] VITALS: Ht 175.3 cm; Wt 63.7 kg
[~2017-02-16 09:49] MED LIST changes: +CEFAZOLIN 1000MG/55 ML D5W IV SCH; -CEPH500C PO; +LACTATED RINGER'S 1000ML 1,000 ML IV SCH
[2017-02-16 10:53] VITALS: BP 135/72; PULSE 70; TEMP 36.8; O2SAT 94; Ht 175.3 cm; Wt 63.7 kg
--- NOTE | 2017-02-16 10:57 | History & Physical Bridge Note ---
H&P Re-Evaluation Bridge Note: I have examined the patient, reviewed the History & Physical and in the interval since the performance of the History & Physical I have noted the following changes of clinical significance: No changes noted
--- NOTE | 2017-02-16 10:58 | Procedure Note ---
Pre-Mod Sedation Assessment General Date of Moderate Sedation: Feb 16, 2017. Review Cardiovascular: regular rate, rhythm Abdomen: soft Lungs: lungs clear Airway Class: II Pre-Sedation Airway Assessment Oral Cavity: Dentures Able to Visualize Vocal Cords: No Short Thick Neck: No Hx of Sleep Apnea: No Smoking Status: Unknown if Ever Smoked Mallampati Classification: Class II ASA Classification: Class II Procedure Planning Contraindications-for Mod Sed: None Yes Notes The planned sedation has been discussed with the patient and consent obtained. I have identified the patient, determined the appropriateness of sedation and have assessed the patient immediately prior to the procedure. All medicine(s) and interventions are by my order.
[2017-02-16] MEDS ORDERED: LIDOCAINE HCL 1% 20 ML VIAL ONE (11:06)
[2017-02-16] MEDS ORDERED: BACITRACIN 50000 UNIT VIAL ONE (11:06)
[2017-02-16] MEDS ORDERED: MIDAZOLAM HCL 1 MG/ML 2ML VIAL ONE (11:23)
--- NOTE | 2017-02-16 12:09 | Procedure Note ---
Post-Mod Sedation Assessment General Date of Moderate Sedation Feb 16, 2017. Vital Signs: Vital Signs Past 12 Hours Date Time Temp Pulse Resp B/P (MAP) Pulse Ox O2 Delivery O2 Flow Rate FiO2 02/16/17 10:53 36.8 70 20 135/72 (93) 94 Room Air Review - Discharge Criteria Vital Signs Stable: Yes Alert/Oriented/Conversant: Yes Returned to Baseline Mental St: Yes Nausea Absent/Minimal: Yes Pain/Discomfort/Absent/Minimal: Yes Normal/Baseline Respirations: Yes Active Bleeding?: No Pt Received D/C Instructions: N/A Prescriptions Given: None Specific Proced. D/C Criteria Distal Pulses Present (Cardiac: N/A Groin site assessed-Card Cath: N/A Voided Prior To Discharge: N/A Discharged Patients Adult Escort/Transportation: N/A
--- NOTE | 2017-02-16 12:11 | [facility] Post Operative Brief Note ---
Immediate Operative Summary Operative Date Feb 16, 2017. Pre-Operative Diagnosis SND, PPM AT QUENTIN Post-Operative Diagnosis SAME AND CHB Procedure(s) Performed DAUL CHAMBER RATE RESPONSIVE PERMANENT PACEMAKER GENERATOR CHANGE Surgeon JOSELIN ECHEVARRIA Motorcycle Fabricator Surgeon(s) NONE Estimated Blood Loss <5CC Findings SEE OFFICIAL REPORT Fluids (cc crystalloids) 150CC Specimens NONE Drains NONE Anesthesia 1MG VERSED Complication(s) None Disposition ASU
--- NOTE | 2017-02-16 12:13 | Discharge Instructions ---
Discharge Instructions Date of Service Feb 16, 2017. Visit Reason for Visit: Sinus Node Dysfunction Discharge Discharge Diagnosis / Problem: DUAL CHAMBER PACEMAKER AT QUENTIN, SND, CHB Discharge Goals Goal(s): Improve function Medications Stopped Medications Name(s): NONE Activity Recommendations Activity Limitations: as noted below Lifting Limitations: no more than 10 pounds (WITH LEFT ARM FOR 2 WEEKS) Shower/Bathe: may shower/bathe in 3 days Driving or Machine Use: N/A PT DOES NOT DRIVE Anesthesia . Post Anesthesia Instructions: If you have had General Anesthesia or IV Sedation: * Do not drive today. * Resume driving when surgeon permits. * Do not make important decisions or sign legal documents today. * Call surgeon for: 1. Temperature elevations greater than 101 degrees F. 2. Uncontrollable pain. 3. Excessive bleeding. 4. Persistent nausea and vomiting. 5. Medication intolerance (nausea, vomiting or rash). * For nausea and vomiting use only clear liquids such as: tea, soda, bouillon until nausea subsides, then gradually increase diet as tolerated. * If you have any concerns or questions, call your surgeon's office. If physician is unavailable and it is an emergency, call 911 or go to the nearest emergency room. . Instructions / Follow-Up Instructions / Follow-Up ACTIVITY RECOMMENDATIONS: * Do not LIFT MORE THAN 10 POUNDS WITH THE LEFT ARM for 2 weeks. SPECIAL CARE INSTRUCTIONS: * If bleeding occurs, apply direct pressure to area for 5 minutes. * Call your doctor if you have severe pain, fever, drainage or bleeding at site. * Keep dressing on and dry for 48 hours then remove. * Keep any scheduled doctor's appointment. * Implant Card - hand held device with website information given. SKIN IRRITATION: * You may experience some redness and/or swelling in the area where radiation was administered. If any skin irritation occurs, please contact your family physician. FOLLOW UP VISIT: Keep any scheduled doctor appointments. Diet Recommendations Recommended Home Diet: resume previous diet Procedures Procedures Performed: DAUL CHAMBER RATE RESPONSIVE PERMANENT PACEMAKER GENERATOR CHANGE Pending Studies Studies pending at discharge: no Medical Emergencies . Who to Call and When: Medical Emergencies: If at any time you feel your situation is an emergency, please call 911 immediately. . Non-Emergent Contact Non-Emergency issues call your: Medical Education Specialist . . "Provider Documentation" section prepared by Jerrica Soni. .
[2017-02-16 12:30] VITALS: BP 148/71; PULSE 60; TEMP 36.5; O2SAT 98
[2017-02-16 13:07] VITALS: BP 136/60; PULSE 97; O2SAT 95
[2017-02-16 13:28] VITALS: BP 126/65; PULSE 60; TEMP 36.3; O2SAT 95
--- NOTE | 2017-02-19 07:09 | OPERATIVE REPORT ---
DATE OF OPERATION: 02/16/2017 PREOPERATIVE DIAGNOSIS: Single chamber pacemaker at elective replacement indicator, complete heart block. POSTOPERATIVE DIAGNOSIS: Same. PROCEDURE: Dual-chamber rate responsive permanent pacemaker generator change. SURGEON: Dr. Jerrica Soni. STRUCTURAL STEEL DETAILER: None. ANESTHESIA: Monitored conscious sedation given under my supervision, administered by Ihsan Zaragoza, a total of 2 mg of Versed. START TIME: 11:33. END TIME: 12:05. COMPLICATIONS: None. CONDITION: Stable. BLOOD LOSS: Less than 5 mL URINE OUTPUT: Not applicable. SPECIMENS: None. FINDINGS: See below. DRAINS: None. INDICATIONS: This is an 86-year-old gentleman with advanced dementia, who had a dual-chamber permanent pacemaker implanted back in 2007 and sounds like initially for sick sinus syndrome. He then later developed complete heart block as he is complete RV pacing. On his most recent pacemaker check, he was found to hit QUENTIN and was recommended a generator change. CONSENT: Consent was obtained by the patient's spouse since the patient has advanced dementia. The patient's spouse was informed of the possible risks which include but are not limited to sudden cardiac , cardiac arrhythmia, cerebrovascular accident, myocardial infarction, bleeding or infection. The patient's spouse understood these risks and signed the consent on behalf of the patient. DESCRIPTION OF THE PROCEDURE: The patient was brought into the electrophysiology lab in a fasting state. He was connected to continuous school lunch monitor. A timeout was performed to ensure the patient's identity correctly. Prophylactic antibiotics prior to incision. He was prepped and draped over the left infraclavicular space in a normal surgical standard fashion. Monitored conscious sedation was given throughout the procedure for the patient's comfort level. Paulding precautions were maintained throughout the procedure. 10 mL of 1% lidocaine were given over the prior surgical incision. Incision was made over the prior surgical incision. Blunt dissection was performed down to the prior pulse generator. The capsule was disrupted using iris scissors. The prior pulse generator was then freed from the capsule and then removed from the body. The leads were tested intraoperatively, see below for results. The capsule was disrupted inferiorly and caudally to allow new blood flow. The pocket was flushed with copious amounts of bacitracin saline wash and inspected for hemostasis. The new pulse generator was attached to the leads, making sure that the pins were in appropriate position, passed the set screws, and the set screws were all tightened. The pulse generator was then placed in the pocket, making sure that the leads were lying flat beneath the device. Norm stat was used in the pocket since the patient is on Coumadin to prevent any bleeding. The incision was then closed in a 3-layer fashion using 2-0 Vicryl interrupted suture, followed by 3-0 Vicryl interrupted suture, followed by a 4-0 Monocryl running stitch, and Dermabond was applied. EQUIPMENT: 1. The explanted generator is an Adapta DR model number ADDR01, serial number [id number], implanted 02/14/2008. Voltage 2.61 volts, hit QUENTIN on 01/06/2017. 2. Right atrial lead 5076-52, serial number [id number], implanted 02/14/2008. 3. Right ventricular lead 5076-58, serial number [id number], implanted 02/14/2008. INTRAOPERATIVE TESTIN. Right atrial lead: P-waves 0.5 millivolts, impedance 411 ohms, threshold 0.6 volts at 1.2 milliamps. 2. Right ventricular lead: R-waves 4.8 millivolts, impedance 761 ohms, threshold 0.8 volts at 1 milliamp. FINAL MEASUREMENTS THROUGH THE DEVICE: 1. Right atrial lead: P-waves 0.9 millivolts, impedance 342 ohms, threshold 1 volt at 0.4 milliseconds. 2. Right ventricular lead: R-waves 3.5 millivolts, impedance 608 ohms, threshold 1 volt at 0.4 milliseconds. FINAL PARAMETERS: DDDR 60/130. Right atrial amplitude 2.0 volts, pulse width 0.4 milliseconds, sensitivity 0.15 millivolts. Right ventricular amplitude 2 volts, pulse width 0.4 milliseconds, sensitivity 1.2 millivolts. IMPRESSION: Successful dual-chamber rate responsive permanent pacemaker generator change secondary to complete heart block and pacemaker at elective replacement indicator. PLAN: Monitor patient post-sedation. Continue his home medication. He should follow up in our [facility] device office in 7-10 days for device and wound check. He should leave the pressure dressing on for 2 days and then remove it. I attest to the content of the Intraoperative Record and any orders documented therein. Any exceptions are noted below. BRYANTD
[2017-05-04] MEDS ORDERED: CEPH500C PO (11:36)
== END 2017-02-16 13:34 | disposition home or self-care (01) ==
LOC: C.ACU 09:49
PROVIDERS: ATTEND Internal Medicine
DX: I25.10 Atherosclerotic heart disease of native coronary artery without angina pectoris (principal); I48.0 Paroxysmal atrial fibrillation; E78.5 Hyperlipidemia, unspecified; G31.83 Neurocognitive disorder with Lewy bodies; F02.80 Dementia in other diseases classified elsewhere, unspecified severity, without behavioral disturbance, psychotic disturbance, mood disturbance, and anxiety; Z79.01 Long term (current) use of anticoagulants; Z95.1 Presence of aortocoronary bypass graft; Z95.0 Presence of cardiac pacemaker; G20 Parkinson's disease; Z85.89 Personal history of malignant neoplasm of other organs and systems; Z90.49 Acquired absence of other specified parts of digestive tract; Z90.79 Acquired absence of other genital organ(s)

== ENCOUNTER → 2017-03-01 | Outpatient (CLI) | payer OTHER, BC ==
[~2017-03-01] MED LIST changes: -ASCA500 PO; -CEFAZOLIN 1000MG/55 ML D5W IV SCH; +CEPH500C PO; -LACTATED RINGER'S 1000ML 1,000 ML IV SCH
[2017-03-01 15:31] LABS: AST/SGOT 53 U/L (15-37); BLOOD UREA NITROGEN 26 mg/dl (7-18); BUN/CREATININE RATIO 17.5 (10-20); CALCIUM 9.3 mg/dl (8.5-10.1); CARBON DIOXIDE 33 mmol/L (21-32); CHLORIDE 105 mmol/L (98-107); GLUCOSE 87 mg/dl (70-99); POTASSIUM 4.6 mmol/L (3.5-5.1); SODIUM 141 mmol/L (136-145)
[2017-03-01 15:36] LABS: ALKALINE PHOSPHATASE 67 U/L (45-117); ALT/SGPT 80 U/L (12-78)
== END | disposition home or self-care (01) ==
LOC: C.LABSPEC 15:08
PROVIDERS: ATTEND Internal Medicine
DX: R53.83 Other fatigue (principal); F03.90 Unspecified dementia, unspecified severity, without behavioral disturbance, psychotic disturbance, mood disturbance, and anxiety; G20 Parkinson's disease

== ENCOUNTER → 2017-03-05 | Outpatient (CLI) | payer OTHER, BC ==
[2017-03-05 13:16] LABS: INR 2.1 (0.9-1.1); PROTHROMBIN TIME (PATIENT) 23.5 SECONDS (9.0-12.0)
== END | disposition home or self-care (01) ==
LOC: C.LABSPEC 12:19
PROVIDERS: ATTEND Specialist
DX: I48.91 Unspecified atrial fibrillation (principal)

== ENCOUNTER → 2017-04-02 | Outpatient (CLI) | payer OTHER, BC ==
[2017-04-02 12:25] LABS: INR 2.9 (0.9-1.1); PROTHROMBIN TIME (PATIENT) 32.7 SECONDS (9.0-12.0)
== END | disposition home or self-care (01) ==
LOC: C.LABBFT 12:09
PROVIDERS: ATTEND Specialist
DX: Z51.81 Encounter for therapeutic drug level monitoring (principal); Z79.01 Long term (current) use of anticoagulants

== ENCOUNTER → 2017-04-30 | Outpatient (CLI) | payer OTHER, BC ==
[2017-04-30 12:36] LABS: PROTHROMBIN TIME (PATIENT) 46.5 SECONDS (9.0-12.0)
[2017-04-30 12:37] LABS: INR 4.1 (0.9-1.1)
== END | disposition home or self-care (01) ==
LOC: C.LABSPEC 12:14
PROVIDERS: ATTEND Specialist
DX: Z01.89 Encounter for other specified special examinations (principal)

== ENCOUNTER → 2017-05-03 | Outpatient (CLI) | payer OTHER, BC ==
[2017-05-03 18:16] LABS: BASO % 0.2 %; BASO ABS # 0.02 K/uL (0-0.2); COMPLETE YES; EOS % 3.3 %; HEMATOCRIT 32.4 % (42-52); IG% 0.1 %; LYMPH % 22.6 %; LYMPH ABS # 1.87 K/uL (1.2-3.4); MEAN CELL VOLUME 98.2 fL (80-100); MEAN CORPUSCULAR HEMOGLOBIN 31.2 pg (25-34); MEAN CORPUSCULAR HGB CONC 31.8 g/dl (32-36); MEAN PLATELET VOLUME 10.3 fL (7.4-10.4); MONO % 7.4 %; NEUT % 66.4 %; PLATELET COUNT 171 K/uL (130-400); WHITE BLOOD COUNT 8.28 K/uL (4.8-10.8)
[2017-05-03 18:38] LABS: BLOOD UREA NITROGEN 30 mg/dl (7-18); BUN/CREATININE RATIO 19.9 (10-20); CALCIUM 9.6 mg/dl (8.5-10.1); CARBON DIOXIDE 32 mmol/L (21-32); CHLORIDE 107 mmol/L (98-107); GLUCOSE 93 mg/dl (70-99); POTASSIUM 4.1 mmol/L (3.5-5.1); SODIUM 144 mmol/L (136-145)
[2017-05-03 18:48] LABS: CHOLESTEROL 80 mg/dl (0-200); CHOLESTEROL/HDL RATIO 1.6; HDL CHOLESTEROL 49 mg/dl; TRIGLYCERIDES 72 mg/dl (0-150); VERY LOW DENSITY LIPOPROT CALC 14 mg/dl
[2017-05-04 06:00] LABS: ESTIMATED AVERAGE GLUCOSE 120 mg/dl; HA1C FLAG Normal (Normal)
== END | disposition home or self-care (01) ==
LOC: C.LABSPEC 16:12
PROVIDERS: ATTEND Internal Medicine
DX: I25.10 Atherosclerotic heart disease of native coronary artery without angina pectoris (principal); E11.9 Type 2 diabetes mellitus without complications; E78.5 Hyperlipidemia, unspecified; R53.83 Other fatigue

== ENCOUNTER → 2017-05-24 | Outpatient (CLI) | payer OTHER, BC ==
[2017-05-24 13:33] LABS: INR 2.8 (0.9-1.1); PROTHROMBIN TIME (PATIENT) 31.4 SECONDS (9.0-12.0)
--- NOTE | 2017-06-11 13:13 | CODING QUERY MEDICAL NECESSITY ---
SUPPORTING DIAGNOSIS NEEDED A supporting diagnosis is required for the test/procedure performed on this patient in order for us to be reimbursed by the patient's insurance. Please provide a supporting diagnosis for the following test/procedure listed below next to the test name along with your signature. *If there is no additional diagnosis for this patient that would support the following test/procedure please document that below next to the test/procedure. Test(s)/Procedure(s) that require a supporting diagnosis: * PT/INR DIAGNOSIS: Provider Signature: Date: Thank you Glory Russo [employer] Once completed, please kindly fax back to [phone] For questions please call [phone]
== END | disposition home or self-care (01) ==
LOC: C.LABSPEC 13:00
PROVIDERS: ATTEND Specialist
DX: I48.91 Unspecified atrial fibrillation (principal)

== ENCOUNTER → 2017-06-08 | Outpatient (CLI) | payer OTHER, BC ==
[2017-06-08 15:50] LABS: INR 3.1 (0.9-1.1); PROTHROMBIN TIME (PATIENT) 34.9 SECONDS (9.0-12.0)
== END | disposition home or self-care (01) ==
LOC: C.LABSPEC 15:29
PROVIDERS: ATTEND Internal Medicine
DX: Z79.01 Long term (current) use of anticoagulants (principal); I48.0 Paroxysmal atrial fibrillation

== ENCOUNTER → 2017-06-22 | Outpatient (CLI) | payer OTHER, BC ==
[2017-06-22 18:31] LABS: PROTHROMBIN TIME (PATIENT) 41.2 SECONDS (9.0-12.0)
[2017-06-22 18:39] LABS: INR 3.6 (0.9-1.1)
== END | disposition home or self-care (01) ==
LOC: C.LABSPEC 17:42
PROVIDERS: ATTEND Internal Medicine
DX: I48.0 Paroxysmal atrial fibrillation (principal); Z79.01 Long term (current) use of anticoagulants

== ENCOUNTER → 2017-06-29 | Outpatient (CLI) | payer OTHER, BC ==
[2017-06-29 14:48] LABS: BASO % 0.3 %; BASO ABS # 0.03 K/uL (0-0.2); COMPLETE YES; EOS % 3.5 %; HEMATOCRIT 30.4 % (42-52); IG% 0.2 %; LYMPH % 26.3 %; LYMPH ABS # 2.42 K/uL (1.2-3.4); MEAN CELL VOLUME 98.7 fL (80-100); MEAN CORPUSCULAR HEMOGLOBIN 31.8 pg (25-34); MEAN CORPUSCULAR HGB CONC 32.2 g/dl (32-36); MEAN PLATELET VOLUME 10.1 fL (7.4-10.4); MONO % 7.5 %; NEUT % 62.2 %; PLATELET COUNT 188 K/uL (130-400); RED BLOOD COUNT 3.08 M/uL (4.7-6.1); WHITE BLOOD COUNT 9.21 K/uL (4.8-10.8)
[2017-06-29 14:55] LABS: INR 2.3 (0.9-1.1); PROTHROMBIN TIME (PATIENT) 23.8 SECONDS (9.0-12.0)
[2017-06-29 14:59] LABS: ALT/SGPT 12 U/L (12-78); AST/SGOT 15 U/L (15-37); BLOOD UREA NITROGEN 48 mg/dl (7-18); BUN/CREATININE RATIO 28.3 (10-20); CARBON DIOXIDE 29 mmol/L (21-32); CHLORIDE 106 mmol/L (98-107); CREATININE 1.71 mg/dl (0.60-1.40); GLUCOSE 100 mg/dl (70-99); POTASSIUM 4.9 mmol/L (3.5-5.1); SODIUM 138 mmol/L (136-145)
[2017-06-29 15:02] LABS: ALB/GLOB RATIO 0.9 (0.9-2); ALKALINE PHOSPHATASE 73 U/L (45-117)
[2017-06-30 06:31] LABS: ESTIMATED AVERAGE GLUCOSE 108 mg/dl; HA1C FLAG Normal (Normal)
== END | disposition home or self-care (01) ==
LOC: C.LABSPEC 14:31
PROVIDERS: ATTEND Internal Medicine
DX: E11.9 Type 2 diabetes mellitus without complications (principal); I25.10 Atherosclerotic heart disease of native coronary artery without angina pectoris; I48.91 Unspecified atrial fibrillation; R23.3 Spontaneous ecchymoses

== ENCOUNTER → 2017-07-07 | Outpatient (CLI) | payer OTHER, BC ==
[2017-07-07 13:17] LABS: INR 2.7 (0.9-1.1); PROTHROMBIN TIME (PATIENT) 27.3 SECONDS (9.0-12.0)
== END | disposition home or self-care (01) ==
LOC: C.LABSPEC 12:43
PROVIDERS: ATTEND Specialist
DX: I48.0 Paroxysmal atrial fibrillation (principal)

== ENCOUNTER → 2017-07-23 | Outpatient (CLI) | payer OTHER, BC ==
[~2017-07-23] MED LIST changes: -ASPEC81 PO; +ASPI-320 PO; +CHOL1TAB12 PO; +MISCCAP80 PO; +MULT-920 PO; +MULT1CHW84 PO; +POTA10CA28 PO; +POTA1CAP2 PO; +TMFS PO; +WARF3TAB PO; +WARF4TAB PO; +ZINC1TAB PO
[2017-07-23 14:15] LABS: INR 2.9 (0.9-1.1)
== END | disposition home or self-care (01) ==
LOC: C.LABSPEC 13:27
PROVIDERS: ATTEND Family Medicine
DX: I48.0 Paroxysmal atrial fibrillation (principal); Z51.81 Encounter for therapeutic drug level monitoring; Z79.01 Long term (current) use of anticoagulants

== ENCOUNTER → 2017-08-19 | Outpatient (CLI) | payer OTHER, BC ==
[~2017-08-19] MED LIST changes: +ASPEC81 PO; -ASPI-320 PO; -CHOL1TAB12 PO; -MISCCAP80 PO; -MULT-920 PO; -MULT1CHW84 PO; -POTA10CA28 PO; -POTA1CAP2 PO; -TMFS PO; -WARF3TAB PO; -WARF4TAB PO; -ZINC1TAB PO
[2017-08-19 15:31] LABS: INR 3.5 (0.9-1.1)
== END | disposition home or self-care (01) ==
LOC: C.LABSPEC 14:51
PROVIDERS: ATTEND Internal Medicine
DX: I48.0 Paroxysmal atrial fibrillation (principal); Z79.01 Long term (current) use of anticoagulants

== ENCOUNTER 2017-09-04 09:58 | Inpatient (IN) | payer OTHER, BC ==
[~2017-09-04] VITALS: Ht 170.2 cm; Wt 69.1 kg
[2017-09-04] MEDS ORDERED: SODIUM CHLORIDE 0.9% 500ML 500 ML IV STA ×2 (10:21→12:49)
[2017-09-04] MEDS ORDERED: SODIUM CHLORIDE 0.9% 1000ML 1,000 ML IV STA (10:21)
--- NOTE | 2017-09-04 10:47 | EMERGENCY ROOM VISIT NOTE ---
History Report prepared by Lo: Rand Salcedo Under the Supervision of: Dr. Christie Bullard M.D. First contact with patient: 10:11 Chief Complaint: FLU LIKE SX Stated Complaint: FLU LIKE/HIGH TEMP History of Present Illness The patient is a 87 year old male who presents to the Emergency Room with complaints of persistent fevers that began around 1800 one day ago. The patient 's daughter states that she has been giving alternating Tylenol and Motrin, which helped reduced the patient's symptoms at first but not anymore. His daughter reports that his highest temperature has ranged from 99 to 102 degrees Fahrenheit. She notes that he has been lethargic and unwilling to eat or drink much. His daughter noticed that he has been coughing up some green mucous, but denies any vomiting or diarrhea. The patient's daughter states that the patient' s caregiver began being treated for the flu and a sinus infection 3 days ago. HPI is limited due patient having dementia. Source of History: patient Onset: 1800 Position: other (global) Quality: other (fever) Timing: other (persistent) Associated Symptoms: No vomiting, No diarrhea Note: Associated symptoms include: lethargic and unwilling to eat or drink much Review of Systems See HPI for pertinent positives & negatives. A total of 10 systems reviewed and were otherwise negative. Past Medical & Surgical Medical Problems: (1) Fever (2) Lethargy (3) MENTAL STATUS CHANGES.[email or web address].CAD Family History Patient reports no known family medical history. No pertinent family history. Social History Smoking Status: Unknown if Ever Smoked Smokeless Tobacco Use: Unknown Alcohol Use: none Drug Use: none Marital Status: Housing Status: lives with family Occupation Status: retired Current/Historical Medications Scheduled Aspirin (Aspirin EC Low Dose), 81 MG PO QAM Atenolol (Atenolol), 50 MG PO QAM Atorvastatin (Lipitor), 10 MG PO QPM Cholecalciferol (Vitamin D3), 1 TAB PO BID Donepezil HCl (Donepezil HCl), 10 MG PO QAM Furosemide (Lasix), 1 TAB PO DAILY Isosorbide Mononitrate (Isosorbide Mononitrate ER), 30 MG PO QAM Levodopa/Carbidopa (Sinemet 25MG/100MG), 2 TAB PO TID Memantine (Namenda), 10 MG PO BID Multiple Vitamins W/ Minerals (Airborne), 500 MG PO QAM Multiple Vitamins W/ Minerals (Emergen-C Vitamin C), 500 MG PO BID Potassium Chloride (Micro-K Ext Rel), Unknown Dose PO BID Probiotic Product (Probiotic), 1 CAP PO DAILY Warfarin Sodium (Coumadin), 1 TAB PO DAILY Warfarin Sodium (Coumadin), 1 TAB PO DAILY Zinc Gluconate (Zinc), 1 TAB PO DAILY [Vit B-12], 1 TAB PO DAILY Scheduled PRN Acetaminophen (Tylenol), 650 MG PO Q4H PRN for Pain or Fever Lisinopril (Zestril), 5 MG PO for Documentation Allergies Coded Allergies: No Known Allergies (Verified , 09/04/17) Physical Exam Vital Signs Date Time Temp Pulse Resp B/P (MAP) Pulse Ox O2 Delivery O2 Flow Rate FiO2 09/04/17 12:56 60 18 116/52 99 Room Air 09/04/17 12:31 83/38 09/04/17 12:30 61 15 94 09/04/17 12:16 102/51 09/04/17 11:30 60 18 97/39 100 Room Air 09/04/17 10:21 74 09/04/17 10:20 38.9 60 12 90/38 95 Room Air Physical Exam Vital signs reviewed. Febrile. Hypotensive. General: Elderly, chronically ill appearing male, in no significant distress. Minimally responsive. HEENT: Old healing ecchymosis to right forehead. No scleral icterus, pin point pupils bilaterally, neck supple. Atraumatic. Cardiovascular: Regular rate and rhythm, no extra sounds. Pulmonary: Rhonchi right greater than left. Normal work of breathing. Abdomen: Soft, nontender, nondistended, positive bowel sounds. Musculoskeletal: Atraumatic, no peripheral edema. Extremities: Faint ecchymotic area to bilateral lower extremities. Neurologic: Patient somnolence, minimally responsive to verbal stimuli. Unable to follow commands. Skin: Warm, dry, no rash Medical Decision & Procedures ER Provider Diagnostic Interpretation: Radiology results as stated below per my review and radiologist interpretation: CHEST ONE VIEW PORTABLE CLINICAL HISTORY: 87 years-old Male presenting with AMS, fever. TECHNIQUE: Portable upright AP view of the chest was obtained. COMPARISON: 11/26/2016. FINDINGS: Left subclavian pacer with leads to the right atrium and right ventricular apex. Median sternotomy wires and mediastinal surgical clips unchanged. Atherosclerosis of aortic arch. Cardiac silhouette top normal in size. Obscuration of the right apex likely due to positioning. Lungs and pleural spaces otherwise clear. Degenerative changes of the thoracic spine. Cholecystectomy clips noted. IMPRESSION: 1. No acute cardiopulmonary disease. Electronically signed by: Gary Castro M.D. 09/04/2017 11:15 AM Dictated Date/Time: 09/04/2017 11:14 AM HEAD WITHOUT CONTRAST (CT) CLINICAL HISTORY: 87 years-old Male presenting with AMS, fever. TECHNIQUE: Multidetector CT imaging of the head was performed without the use of intravenous contrast. IV contrast: None. A dose lowering technique was used consistent with the principles of ALARA (as low as reasonably achievable). COMPARISON: 11/26/2016. CT DOSE (mGy.cm): The estimated cumulative dose is 537.48 mGy.cm. FINDINGS: Medical Safety Director topogram: Unremarkable. Proportional ventricular and sulcal prominence, likely age-related parenchymal volume loss. Brain parenchyma normal in appearance with preserved wheeler-white differentiation. No mass effect or midline shift. No hemorrhage or acute territorial infarct. No extra-axial fluid collection. Paranasal sinuses and mastoid air cells clear. Calvarium intact. IMPRESSION: 1. No acute intracranial abnormality. Electronically signed by: Gary Castro M.D. 09/04/2017 12:04 PM Dictated Date/Time: 09/04/2017 12:02 PM Laboratory Results Test 09/04/17 10:38 09/04/17 10:50 09/04/17 10:52 09/04/17 11:27 Immature Granulocyte % (Auto) 0.2 % White Blood Count 10.21 K/uL (4.8-10.8) Red Blood Count 2.90 M/uL (4.7-6.1) Hemoglobin 9.2 g/dL (14.0-18.0) Hematocrit 28.2 % (42-52) Mean Corpuscular Volume 97.2 fL (80-100) Mean Corpuscular Hemoglobin 31.7 pg (25-34) Mean Corpuscular Hemoglobin Concent 32.6 g/dl (32-36) Platelet Count 165 K/uL (130-400) Mean Platelet Volume 9.5 fL (7.4-10.4) Neutrophils (%) (Auto) 79.7 % Lymphocytes (%) (Auto) 10.8 % Monocytes (%) (Auto) 8.9 % Eosinophils (%) (Auto) 0.3 % Basophils (%) (Auto) 0.1 % Neutrophils # (Auto) 8.14 K/uL (1.4-6.5) Lymphocytes # (Auto) 1.10 K/uL (1.2-3.4) Monocytes # (Auto) 0.91 K/uL (0.11-0.59) Eosinophils # (Auto) 0.03 K/uL (0-0.5) Basophils # (Auto) 0.01 K/uL (0-0.2) Immature Granulocyte # (Auto) 0.02 K/uL (0.00-0.02) Nucleated RBC Absolute Count (auto) 0.02 K/uL (0-0) Nucleated Red Blood Cells % 0.2 % Activated Partial Thromboplast Time 44.2 SECONDS (21.0-31.0) Partial Thromboplastin Ratio 1.7 Total Bilirubin 0.4 mg/dl (0.2-1) Direct Bilirubin 0.2 mg/dl (0-0.2) Aspartate Amino Transf (AST/SGOT) 17 U/L (15-37) Alanine Aminotransferase (ALT/SGPT) 20 U/L (12-78) Alkaline Phosphatase 97 U/L (45-117) Total Creatine Kinase 62 U/L (39-308) Creatine Kinase MB < 0.5 ng/ml (0.5-3.6) Creatine Kinase MB Ratio (0-3.0) Total Protein 7.1 gm/dl (6.4-8.2) Albumin 3.2 gm/dl (3.4-5.0) Influenza Type A (RT-PCR) POS for Influ A (NEG) Influenza Type A Antigen Neg for Influ A (NEG) Influenza Type B Antigen Neg for Influ B (NEG) Influenza Type B (RT-PCR) Neg for Influ B (NEG) Bedside Lactic Acid Venous 1.62 mmol/L (0.90-1.70) Bedside Troponin I < 0.030 ng/ml (0-0.045) Urine Color YELLOW Urine Appearance CLEAR (CLEAR) Urine pH 5.0 (4.5-7.5) Urine Specific [place] 1.026 (1.000-1.030) Urine Protein NEG (NEG) Urine Glucose (UA) NEG (NEG) Urine Ketones TRACE (NEG) Urine Occult Blood NEG (NEG) Urine Nitrite NEG (NEG) Urine Bilirubin NEG (NEG) Urine Urobilinogen NEG (NEG) Urine Leukocyte Esterase NEG (NEG) Medications Administered Medications (Trade) Dose Ordered Sig/Maritza Route Start Time Stop Time Status Last Admin Dose Admin Sodium Chloride 500 ml @ 999 mls/hr Q31M STAT IV 09/04/17 10:21 09/04/17 10:51 DC 09/04/17 10:45 999 MLS/HR Sodium Chloride 1,000 ml @ 125 mls/hr Q8H STAT IV 09/04/17 10:21 09/04/17 18:20 DC 09/04/17 10:45 125 MLS/HR Acetaminophen 650 mg/Empty Bag 65 ml @ 260 mls/hr NOW STAT IV 09/04/17 11:44 09/04/17 11:58 DC 09/04/17 13:10 260 MLS/HR Sodium Chloride 500 ml @ 999 mls/hr Q31M STAT IV 09/04/17 12:49 09/04/17 13:19 DC 09/04/17 13:10 999 MLS/HR ECG Indication: altered mental status Rate (beats per minute): 62 Rhythm: other (AV sequential pace maker) Findings: no ectopy, other (QTC is 464) Change: Patients electrocardiogram as interpreted by me. ED Course 1018: Past medical records reviewed. The patient was evaluated in room C5. A complete history and physical examination was performed. 1021: Ordered Sodium Chloride 500 ml@ 260 mls/hr IV and Sodium Chloride 1000 ml @ 125 mls/hr IV. 1144: Ordered Acetaminophen 650mg/ Empty Bag 65ml @ 260mls/hr IV. 1249: Ordered Sodium Chloride 500 ml @ 999 mls/hr IV. 1250: I reevaluated the patient. His blood pressure is dropping. 1312: Dr. Kwasi Haynes [facility] [place] patient's case. He will evaluate the patient for further management. Medical Decision Differential diagnosis: Etiologies such as viral syndrome, otitis, pharyngitis, pneumonia, influenza, meningitis, urinary tract infection, sepsis, bacteremia, as well as others were entertained. This patient was evaluated and appeared to be generally unresponsive. He will awaken to some verbal stimuli but is not verbal. Chest x-ray was obtained and reveals no evidence of focal infiltrate. Patient is noted to be markedly febrile and given IV Tylenol. Blood cultures and a POC lactic were obtained. UA is negative. Laboratory work is fairly unrevealing. A rapid flu swab is negative however PCR is pending. Given the patient's presenting symptoms with cough noted by family, I strongly suspect influenza. He does not appear to be septic based on laboratory work but is mildly hypotensive currently. Patient is found to be dehydrated. IV hydration has helped. I did discuss the situation with the patient's family. The hospitalist will be consulted for further management. Medication Reconcilliation Current Medication List: was personally reviewed by me Blood Pressure Screening Patient's blood pressure: Low blood pressure Blood pressure disposition: Referred to PCP (hospitalist ) Consults Time Called: 1312 Consulting Physician: TRAVON Rodríguez Returned Call: 1312 TRAVON Rodríguez was notified of the patient's case. He will evaluate the patient for further management. Impression Primary Impression: Altered mental status Additional Impressions: Fever Hypotension Influenza-like symptoms Critical Care I have personally spent greater than 60 minutes of critical care time in the direct management of this patient. This includes bedside care, interpretation of diagnostic studies, and testing, discussion with consultants, patient, and family members, and other required patient management activities. This 60 minutes is in excess of all separately billable procedures. Scribe Attestation The scribe's documentation has been prepared under my direction and personally reviewed by me in its entirety. I confirm that the note above accurately reflects all work, treatment, procedures, and medical decision making performed by me. Departure Information Dispostion Being Evaluated By Hospitalist Referrals Quincy Rodriguez M.D. (PCP) Forms HOME CARE DOCUMENTATION FORM, IMPORTANT VISIT INFORMATION Patient Instructions My [facility] Problem Qualifiers
[2017-09-04 11:08] LABS: BASO % 0.1 %; BASO ABS # 0.01 K/uL (0-0.2); EOS % 0.3 %; EOS ABS # 0.03 K/uL (0-0.5); HEMATOCRIT 28.2 % (42-52); HEMOGLOBIN 9.2 g/dL (14.0-18.0); IG# 0.02 K/uL (0.00-0.02); LYMPH % 10.8 %; MEAN CELL VOLUME 97.2 fL (80-100); MEAN CORPUSCULAR HEMOGLOBIN 31.7 pg (25-34); MEAN CORPUSCULAR HGB CONC 32.6 g/dl (32-36); MEAN PLATELET VOLUME 9.5 fL (7.4-10.4); MONO % 8.9 %; MONO ABS # 0.91 K/uL (0.11-0.59); NEUT % 79.7 %; NEUT ABS # 8.14 K/uL (1.4-6.5); NUCLEATED RED BLOOD CELL ABS 0.02 K/uL (0-0); PLATELET COUNT 165 K/uL (130-400); RED CELL DISTRIBUTION WIDTH CV 14.4 % (11.5-14.5); RED CELL DISTRIBUTION WIDTH SD 51.5 fL (36.4-46.3); WHITE BLOOD COUNT 10.21 K/uL (4.8-10.8)
--- NOTE | 2017-09-04 11:17 | DIAGNOSTIC IMAGING REPORT ---
CHEST ONE VIEW PORTABLE CLINICAL HISTORY: 87 years-old Male presenting with AMS, fever. TECHNIQUE: Portable upright AP view of the chest was obtained. COMPARISON: 11/26/2016. FINDINGS: Left subclavian pacer with leads to the right atrium and right ventricular apex. Median sternotomy wires and mediastinal surgical clips unchanged. Atherosclerosis of aortic arch. Cardiac silhouette top normal in size. Obscuration of the right apex likely due to positioning. Lungs and pleural spaces otherwise clear. Degenerative changes of the thoracic spine. Cholecystectomy clips noted. IMPRESSION: 1. No acute cardiopulmonary disease. Electronically signed by: Gary Castro M.D. 09/04/2017 11:15 AM Dictated Date/Time: 09/04/2017 11:14 AM
[2017-09-04] MEDS ORDERED: MULT-920 PO (11:18)
[2017-09-04 11:20] LABS: INR 2.7 (0.9-1.1); PTT PATIENT 44.2 SECONDS (21.0-31.0)
[2017-09-04 11:23] LABS: INFLUENZA B ANTIGEN Neg for Influ B (NEG)
[2017-09-04 11:26] LABS: ALBUMIN 3.2 gm/dl (3.4-5.0); ALT/SGPT 20 U/L (12-78); AST/SGOT 17 U/L (15-37); BLOOD UREA NITROGEN 43 mg/dl (7-18); CALCIUM 8.7 mg/dl (8.5-10.1); CARBON DIOXIDE 25 mmol/L (21-32); CREATININE 2.09 mg/dl (0.60-1.40); GLUCOSE 115 mg/dl (70-99); POTASSIUM 4.7 mmol/L (3.5-5.1); SODIUM 137 mmol/L (136-145)
[2017-09-04 11:31] LABS: ALKALINE PHOSPHATASE 97 U/L (45-117); CKMB < 0.5 ng/ml (0.5-3.6); TOTAL PROTEIN 7.1 gm/dl (6.4-8.2)
[2017-09-04] MEDS ORDERED: WARF4TAB PO (11:31)
[2017-09-04] MEDS ORDERED: CHOL1TAB12 PO (11:31)
[2017-09-04] MEDS ORDERED: MULT1CHW84 PO (11:31)
[2017-09-04] MEDS ORDERED: POTA1CAP2 PO (11:31)
[2017-09-04] MEDS ORDERED: WARF3TAB PO (11:31)
[2017-09-04] MEDS ORDERED: MISCCAP80 PO (11:31)
[2017-09-04] MEDS ORDERED: ZINC1TAB PO (11:32)
[2017-09-04] MEDS ORDERED: POTA10CA28 PO (11:36)
[2017-09-04] MEDS ORDERED: ACETAMINOPHEN IV 650 MG in EMPTY BAG 0 ML IV STA (11:44)
--- NOTE | 2017-09-04 12:06 | DIAGNOSTIC IMAGING REPORT ---
HEAD WITHOUT CONTRAST (CT) CLINICAL HISTORY: 87 years-old Male presenting with AMS, fever. TECHNIQUE: Multidetector CT imaging of the head was performed without the use of intravenous contrast. IV contrast: None. A dose lowering technique was used consistent with the principles of ALARA (as low as reasonably achievable). COMPARISON: 11/26/2016. CT DOSE (mGy.cm): The estimated cumulative dose is 537.48 mGy.cm. FINDINGS: Parts Runner topogram: Unremarkable. Proportional ventricular and sulcal prominence, likely age-related parenchymal volume loss. Brain parenchyma normal in appearance with preserved wheeler-white differentiation. No mass effect or midline shift. No hemorrhage or acute territorial infarct. No extra-axial fluid collection. Paranasal sinuses and mastoid air cells clear. Calvarium intact. IMPRESSION: 1. No acute intracranial abnormality. Electronically signed by: Gary Castro M.D. 09/04/2017 12:04 PM Dictated Date/Time: 09/04/2017 12:02 PM
[2017-09-04] MEDS ORDERED: ONDANSETRON INJ 2 MG/ML 2 ML VIAL IV PRN (13:30)
[2017-09-04] MEDS ORDERED: ALUMINUM/MAGNESIUM/SIMETH (MAALOX MAX) 30 ML UDC PO PRN (13:30)
[2017-09-04] MEDS ORDERED: MoRPHine SULFATE 2 MG/ML CARP IV PRN (13:30)
[2017-09-04] MEDS ORDERED: POLYETHYLENE (MIRALAX) 17 GM PACK PO PRN (13:30)
[2017-09-04] MEDS ORDERED: ACETAMINOPHEN 325 MG TAB PO PRN (13:30)
[2017-09-04] MEDS ORDERED: MAGNESIUM HYDROXIDE SUSP 30 ML UDC PO PRN (13:30)
--- NOTE | 2017-09-04 13:43 | History and Physical ---
History & Physical Date & Time of Service: Sep 04, 2017 at 13:29 Chief Complaint: Flu Like/High Temp Primary Care Physician: Quincy Rodriguez M.D. History of Present Illness Source: family, hospital records 87 y/o M Hx dementia, CAD, CKD IV, anemia, HTN, PAF, bradycardia - pacer, Parkinson. Pt presents with fever, lethargy and a poor appetite x 2 days. His fever had not responded well to Tylenol and then Ibuprofen provided at home. He had apparently been coughing earlier. The HPI is limited due to the pt's dementia and lethargy - per family, he is normally talkative. It is reported that one of his caretakers had a viral illness and a sinus infection this past week. The pt was febrile and hypotensive on arrival to the ER. He responded to a fluid bolus. Rapid flu is negative. UA and CXR do not support a diagnosis of bacterial infection. 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 Smoking Status: Never Smoker Marital Status: Immunizations History of Influenza Vaccine: Yes Influenza Vaccine Date: May 16, 2007 History of Tetanus Vaccine?: Yes History of Pneumococcal: Yes History of Hepatitis B Vaccine: No Multi-Drug Resistant Organisms History of MDRO: No Allergies Coded Allergies: No Known Allergies (Verified , 09/04/17) Home Medications Scheduled Aspirin (Aspirin EC Low Dose), 81 MG PO QAM Atenolol (Atenolol), 50 MG PO QAM Atorvastatin (Lipitor), 10 MG PO QPM Cholecalciferol (Vitamin D3), 1 TAB PO BID Donepezil HCl (Donepezil HCl), 10 MG PO QAM Furosemide (Lasix), 1 TAB PO DAILY Isosorbide Mononitrate (Isosorbide Mononitrate ER), 30 MG PO QAM Levodopa/Carbidopa (Sinemet 25MG/100MG), 2 TAB PO TID Memantine (Namenda), 10 MG PO BID Multiple Vitamins W/ Minerals (Airborne), 500 MG PO QAM Multiple Vitamins W/ Minerals (Emergen-C Vitamin C), 500 MG PO BID Potassium Chloride (Micro-K Ext Rel), Unknown Dose PO BID Probiotic Product (Probiotic), 1 CAP PO DAILY Warfarin Sodium (Coumadin), 1 TAB PO DAILY Warfarin Sodium (Coumadin), 1 TAB PO DAILY Zinc Gluconate (Zinc), 1 TAB PO DAILY [Vit B-12], 1 TAB PO DAILY Scheduled PRN Acetaminophen (Tylenol), 650 MG PO Q4H PRN for Pain or Fever Lisinopril (Zestril), 5 MG PO for Documentation Review of Systems Constitutional: + weakness, + fatigue Respiratory: No shortness of breath Physical Exam Vital Signs Date Time Temp Pulse Resp B/P (MAP) Pulse Ox O2 Delivery O2 Flow Rate FiO2 09/04/17 12:56 60 18 116/52 99 Room Air 09/04/17 12:31 83/38 09/04/17 12:30 61 15 94 09/04/17 12:16 102/51 09/04/17 11:30 60 18 97/39 100 Room Air 09/04/17 10:21 74 09/04/17 10:20 38.9 60 12 90/38 95 Room Air General Appearance: + pertinent finding (Lethargic, elderly male - coughing - does not respond to questioning) Head: + pertinent finding (There is a bruised area on top portion of head) Eyes: normal inspection ENT: + pertinent finding (Could not examine oral cavity) Neck: supple, no JVD Respiratory/Chest: chest non-tender, + pertinent finding (Pacer in L chest - poor effort and large air noises limit exam ) Cardiovascular: no edema, no gallop, + systolic murmur, + irregularly irregular Abdomen/GI: normal bowel sounds, non tender, soft Back: normal inspection, no CVA tenderness Extremities/Musculoskelatal: no calf tenderness, normal capillary refill, + pertinent finding (Ulcer on RLE lat malleolar) Neurologic/Psych: + pertinent finding (Cannot comply with neuro exam - tremor noted - primarily on R - does not respond to questioning) Skin: + pallor, + pertinent finding (Ulcer - stage III - as per extrem exam - bruised area on top of head) Diagnostics Laboratory Results Results Past 24 Hours Test 09/04/17 10:38 09/04/17 10:50 09/04/17 10:52 09/04/17 11:27 Range/Units White Blood Count 10.21 4.8-10.8 K/uL Red Blood Count 2.90 4.7-6.1 M/uL Hemoglobin 9.2 14.0-18.0 g/dL Hematocrit 28.2 42-52 % Mean Corpuscular Volume 97.2 80-100 fL Mean Corpuscular Hemoglobin 31.7 25-34 pg Mean Corpuscular Hemoglobin Concent 32.6 32-36 g/dl Platelet Count 165 130-400 K/uL Mean Platelet Volume 9.5 7.4-10.4 fL Neutrophils (%) (Auto) 79.7 % Lymphocytes (%) (Auto) 10.8 % Monocytes (%) (Auto) 8.9 % Eosinophils (%) (Auto) 0.3 % Basophils (%) (Auto) 0.1 % Neutrophils # (Auto) 8.14 1.4-6.5 K/uL Lymphocytes # (Auto) 1.10 1.2-3.4 K/uL Monocytes # (Auto) 0.91 0.11-0.59 K/uL Eosinophils # (Auto) 0.03 0-0.5 K/uL Basophils # (Auto) 0.01 0-0.2 K/uL RDW Standard Deviation 51.5 36.4-46.3 fL RDW Coefficient of Variation 14.4 11.5-14.5 % Immature Granulocyte % (Auto) 0.2 % Immature Granulocyte # (Auto) 0.02 0.00-0.02 K/uL Nucleated RBC Absolute Count (auto) 0.02 0-0 K/uL Nucleated Red Blood Cells % 0.2 % Prothrombin Time 28.0 9.0-12.0 SECONDS Prothromb Time International Ratio 2.7 0.9-1.1 Activated Partial Thromboplast Time 44.2 21.0-31.0 SECONDS Partial Thromboplastin Ratio 1.7 Sodium Level 137 136-145 mmol/L Potassium Level 4.7 3.5-5.1 mmol/L Chloride Level 107 98-107 mmol/L Carbon Dioxide Level 25 21-32 mmol/L Anion Gap 5.0 3-11 mmol/L Blood Urea Nitrogen 43 7-18 mg/dl Creatinine 2.09 0.60-1.40 mg/dl Est Creatinine Clear Calc Drug Dose 24.2 ml/min Estimated GFR () 32.5 Estimated GFR (Non- 28.0 BUN/Creatinine Ratio 20.4 10-20 Random Glucose 115 70-99 mg/dl Calcium Level 8.7 8.5-10.1 mg/dl Magnesium Level 2.2 1.8-2.4 mg/dl Total Bilirubin 0.4 0.2-1 mg/dl Direct Bilirubin 0.2 0-0.2 mg/dl Aspartate Amino Transf (AST/SGOT) 17 15-37 U/L Alanine Aminotransferase (ALT/SGPT) 20 12-78 U/L Alkaline Phosphatase 97 45-117 U/L Total Creatine Kinase 62 39-308 U/L Creatine Kinase MB < 0.5 0.5-3.6 ng/ml Creatine Kinase MB Ratio 0-3.0 Total Protein 7.1 6.4-8.2 gm/dl Albumin 3.2 3.4-5.0 gm/dl Influenza Type A Antigen Neg for Influ A NEG Influenza Type B Antigen Neg for Influ B NEG Bedside Lactic Acid Venous 1.62 0.90-1.70 mmol/L Bedside Troponin I < 0.030 0-0.045 ng/ml Urine Color YELLOW Urine Appearance CLEAR CLEAR Urine pH 5.0 4.5-7.5 Urine Specific [place] 1.026 1.000-1.030 Urine Protein NEG NEG Urine Glucose (UA) NEG NEG Urine Ketones TRACE NEG Urine Occult Blood NEG NEG Urine Nitrite NEG NEG Urine Bilirubin NEG NEG Urine Urobilinogen NEG NEG Urine Leukocyte Esterase NEG NEG Test 09/04/17 12:30 Range/Units Microbiology Results 09/04/17 Blood Culture, Received Pending 09/04/17 Blood Culture, Received Pending CXR normal EKG Dual pacing Impression Assessment and Plan 87 y/o M Hx dementia, CAD, CKD IV, anemia, HTN, PAF, bradycardia - pacer, Parkinson. Pt presents with fever, lethargy and a poor appetite x 2 days. His fever had not responded well to Tylenol and then Ibuprofen provided at home. He had apparently been coughing earlier. The HPI is limited due to the pt's dementia and lethargy - per family, he is normally talkative. It is reported that one of his caretakers had a viral illness and a sinus infection this past week. The pt was febrile and hypotensive on arrival to the ER. He responded to a fluid bolus. Rapid flu is negative. UA and CXR do not support a diagnosis of bacterial infection. 1) Fever - presumed viral presently - will start Tamiflu pending flu PCR result. IVF, Tylenol provided. Assigned to telemetry due to initial hypotension. He has a cough so that if he does not improve, a CT chest would be reasonable prior to starting antibiotics 2) Parkinson with dementia - cont Sinemet, Donepezil 3) CKD IV - creat is approximately at baseline - will trend 4) HTN - Lasix held - Lisinopril, Atenolol maintained with holding parameters 5) CAD - no evidence of ACS currently - cont ASA, statin, Imdur, Atenolol 6) PAF - cont Atenolol - INR is therapeutic on Coumadin 7) Ulcer R lat LE - wound care to be consulted DNR - Heparin prophylaxis Total time for this admit including review of labs, meds, imaging, records - discussion with pt's family and ER attending - 39 min Level of Care Telemetry Resuscitation Status DO NOT RESUSCITATE VTE Prophylaxis VTE Risk Assessment Done? Y/N: Yes Risk Level: Moderate Given or contraindicated: Unfractionated heparin SQ
[2017-09-04] MEDS: CARBIDOPA/LEVODOPA 25/100MG TAB PO SCH ×2 (14:00→21:05)
[2017-09-04 15:47] LABS: INFLUENZA A PCR POS for Influ A (NEG); INFLUENZA B PCR Neg for Influ B (NEG)
[2017-09-04 16:37] VITALS: BP 98/48; PULSE 60; O2SAT 100; Ht 170.2 cm; Wt 69.1 kg
[2017-09-04] MEDS: OSELTAMIVIR PHOSPHATE 6 MG/ML SUSP PO SCH (18:24)
[2017-09-04] MEDS: SODIUM CHLORIDE 0.9% 1000ML 1,000 ML IV SCH (18:28)
[2017-09-04 19:54] VITALS: BP 129/67; PULSE 81; TEMP 37; O2SAT 93
[2017-09-04] MEDS ORDERED: HEPARIN SOD 5000 UNIT/0.5 ML CARP SQ SCH (21:00)
[2017-09-04] MEDS: MEMANTINE 10 MG TAB PO SCH (21:05)
[2017-09-04] MEDS: ATORVASTATIN 10 MG TAB PO SCH (21:05)
[2017-09-04 23:43] VITALS: BP 113/53; PULSE 63; TEMP 37; O2SAT 97
[2017-09-05] VITALS (7 sets, daily range): BP systolic 105–137; BP diastolic 53–82; PULSE 60–67; TEMP 36.7–37.8; O2SAT 95–100
[2017-09-05] MEDS: SODIUM CHLORIDE 0.9% 1000ML 1,000 ML IV SCH ×2 (04:42→15:22)
[2017-09-05 06:23] LABS: HEMATOCRIT 30.7 % (42-52); HEMOGLOBIN 9.9 g/dL (14.0-18.0); MEAN CELL VOLUME 97.8 fL (80-100); MEAN CORPUSCULAR HEMOGLOBIN 31.5 pg (25-34); MEAN CORPUSCULAR HGB CONC 32.2 g/dl (32-36); MEAN PLATELET VOLUME 9.5 fL (7.4-10.4); PLATELET COUNT 162 K/uL (130-400); RED CELL DISTRIBUTION WIDTH CV 14.4 % (11.5-14.5); RED CELL DISTRIBUTION WIDTH SD 51.5 fL (36.4-46.3); WHITE BLOOD COUNT 9.78 K/uL (4.8-10.8)
[2017-09-05 06:34] LABS: INR 2.5 (0.9-1.1)
[2017-09-05 06:55] LABS: CALCIUM 8.7 mg/dl (8.5-10.1); CREATININE 1.29 mg/dl (0.60-1.40); POTASSIUM 4.1 mmol/L (3.5-5.1)
--- NOTE | 2017-09-05 07:47 | Progress Note ---
Subjective Date of Service: Sep 05, 2017. Subjective this pt is lethargic does have purposeful movement. volitionally closes eyes when I try to open them. he appears comfortable and in no serious distress Problem List Medical Problems: (1) Altered mental status Status: Acute (2) Hypotension Status: Acute Review of Systems Constitutional: + weakness, + fatigue, + problem reported (not verbal to give full ROS), No fever, No chills Objective Vital Signs Date Time Temp Pulse Resp B/P (MAP) Pulse Ox O2 Delivery O2 Flow Rate FiO2 09/05/17 07:37 37.3 61 17 119/56 (77) 100 Nasal Cannula 2.0 09/05/17 04:00 36.9 64 18 116/65 (82) 100 Nasal Cannula 2.0 09/05/17 04:00 Room Air 09/05/17 00:00 Room Air 09/04/17 23:43 37.0 63 18 113/53 (73) 97 Nasal Cannula 2.0 09/04/17 20:00 Room Air 09/04/17 19:54 37.0 81 18 129/67 (87) 93 Nasal Cannula 2.0 09/04/17 16:37 60 18 98/48 100 Nasal Cannula 2.0 09/04/17 16:30 66 18 93/42 95 09/04/17 14:19 37.9 66 18 93/42 95 09/04/17 13:47 60 09/04/17 12:56 60 18 116/52 99 Room Air 09/04/17 12:31 83/38 09/04/17 12:30 61 15 94 09/04/17 12:16 102/51 09/04/17 11:30 60 18 97/39 100 Room Air 09/04/17 10:21 74 09/04/17 10:20 38.9 60 12 90/38 95 Room Air Physical Exam General Appearance: WD/WN, + mild distress Respiratory/Chest: + decreased breath sounds, + rhonchi Cardiovascular: regular rate, rhythm, + systolic murmur Abdomen: normal bowel sounds, non tender, soft Extremities: no pedal edema, no calf tenderness Neurologic/Psychiatric: + depressed affect Skin: normal color, warm/dry Laboratory Results Last 24 Hours Test 09/04/17 10:38 09/04/17 10:50 2/10/18 10:52 09/04/17 11:27 White Blood Count 10.21 K/uL Red Blood Count 2.90 M/uL Hemoglobin 9.2 g/dL Hematocrit 28.2 % Mean Corpuscular Volume 97.2 fL Mean Corpuscular Hemoglobin 31.7 pg Mean Corpuscular Hemoglobin Concent 32.6 g/dl Platelet Count 165 K/uL Mean Platelet Volume 9.5 fL Neutrophils (%) (Auto) 79.7 % Lymphocytes (%) (Auto) 10.8 % Monocytes (%) (Auto) 8.9 % Eosinophils (%) (Auto) 0.3 % Basophils (%) (Auto) 0.1 % Neutrophils # (Auto) 8.14 K/uL Lymphocytes # (Auto) 1.10 K/uL Monocytes # (Auto) 0.91 K/uL Eosinophils # (Auto) 0.03 K/uL Basophils # (Auto) 0.01 K/uL RDW Standard Deviation 51.5 fL RDW Coefficient of Variation 14.4 % Immature Granulocyte % (Auto) 0.2 % Immature Granulocyte # (Auto) 0.02 K/uL Nucleated RBC Absolute Count (auto) 0.02 K/uL Nucleated Red Blood Cells % 0.2 % Prothrombin Time 28.0 SECONDS Prothromb Time International Ratio 2.7 Activated Partial Thromboplast Time 44.2 SECONDS Partial Thromboplastin Ratio 1.7 Sodium Level 137 mmol/L Potassium Level 4.7 mmol/L Chloride Level 107 mmol/L Carbon Dioxide Level 25 mmol/L Anion Gap 5.0 mmol/L Blood Urea Nitrogen 43 mg/dl Creatinine 2.09 mg/dl Est Creatinine Clear Calc Drug Dose 24.2 ml/min Estimated GFR () 32.5 Estimated GFR (Non- 28.0 BUN/Creatinine Ratio 20.4 Random Glucose 115 mg/dl Calcium Level 8.7 mg/dl Magnesium Level 2.2 mg/dl Total Bilirubin 0.4 mg/dl Direct Bilirubin 0.2 mg/dl Aspartate Amino Transf (AST/SGOT) 17 U/L Alanine Aminotransferase (ALT/SGPT) 20 U/L Alkaline Phosphatase 97 U/L Total Creatine Kinase 62 U/L Creatine Kinase MB < 0.5 ng/ml Creatine Kinase MB Ratio Total Protein 7.1 gm/dl Albumin 3.2 gm/dl Influenza Type A (RT-PCR) POS for Influ A Influenza Type A Antigen Neg for Influ A Influenza Type B Antigen Neg for Influ B Influenza Type B (RT-PCR) Neg for Influ B Bedside Lactic Acid Venous 1.62 mmol/L Bedside Troponin I < 0.030 ng/ml Urine Color YELLOW Urine Appearance CLEAR Urine pH 5.0 Urine Specific [place] 1.026 Urine Protein NEG Urine Glucose (UA) NEG Urine Ketones TRACE Urine Occult Blood NEG Urine Nitrite NEG Urine Bilirubin NEG Urine Urobilinogen NEG Urine Leukocyte Esterase NEG Test 09/05/17 05:23 White Blood Count 9.78 K/uL Red Blood Count 3.14 M/uL Hemoglobin 9.9 g/dL Hematocrit 30.7 % Mean Corpuscular Volume 97.8 fL Mean Corpuscular Hemoglobin 31.5 pg Mean Corpuscular Hemoglobin Concent 32.2 g/dl RDW Standard Deviation 51.5 fL RDW Coefficient of Variation 14.4 % Platelet Count 162 K/uL Mean Platelet Volume 9.5 fL Prothrombin Time 25.6 SECONDS Prothromb Time International Ratio 2.5 Sodium Level 139 mmol/L Potassium Level 4.1 mmol/L Chloride Level 109 mmol/L Carbon Dioxide Level 23 mmol/L Anion Gap 7.0 mmol/L Blood Urea Nitrogen 32 mg/dl Creatinine 1.29 mg/dl Est Creatinine Clear Calc Drug Dose 38.7 ml/min Estimated GFR () 58.2 Estimated GFR (Non- 50.2 BUN/Creatinine Ratio 25.0 Random Glucose 85 mg/dl Calcium Level 8.7 mg/dl Magnesium Level 2.1 mg/dl Assessment and Plan 87 y/o M febrile illness and metabolic encephalopathy from influenza A, past Hx dementia, CAD, CKD IV, anemia, HTN, PAF, bradycardia - pacer, Parkinson. The pt was febrile and hypotensive on arrival to the ER. considering sepsis, He responded to a fluid bolus. INfluenza A - Tamiflu flu PCR positive IVF, Tylenol provided. Assigned to telemetry due to initial hypotension and concern for sepsis or Sirs. Parkinson with dementia - decreased functioning, continue Sinemet, Donepezil acute renal failure, resolved, now CKD IV - creat is approximately at baseline HTN - Lasix held - Lisinopril, Atenolol CAD - no evidence of ACS currently - cont ASA, statin, Imdur, Atenolol PAF -rate controlled with Atenolol - Coumadin for full anticoagulation Ulcer R lat LE - wound care to be consulted
[2017-09-05] MEDS: CARBIDOPA/LEVODOPA 25/100MG TAB PO SCH ×3 (08:46→20:53)
[2017-09-05] MEDS: MEMANTINE 10 MG TAB PO SCH ×2 (08:46→20:53)
[2017-09-05] MEDS: DONEPEZIL HCL 10 MG TAB PO SCH (08:46)
[2017-09-05] MEDS: ASPIRIN 81 MG ECTAB PO SCH (08:46)
[2017-09-05] MEDS: ISOSORBIDE MONONITRATE 30 MG TABCR PO SCH (08:46)
[2017-09-05] MEDS: LISINOPRIL 5 MG TAB PO SCH (08:46)
[2017-09-05] MEDS: OSELTAMIVIR PHOSPHATE 6 MG/ML SUSP PO SCH ×2 (08:47→20:53)
[2017-09-05] MEDS: WARFARIN SOD 3 MG TAB PO SCH (15:22)
[2017-09-05] MEDS: ATORVASTATIN 10 MG TAB PO SCH (20:53)
[2017-09-06 03:35] VITALS: BP 130/64; PULSE 61; TEMP 37.1; O2SAT 95
[2017-09-06] MEDS: SODIUM CHLORIDE 0.9% 1000ML 1,000 ML IV SCH ×2 (05:28→18:50)
[2017-09-06 06:55] LABS: INR 1.7 (0.9-1.1)
[2017-09-06 08:10] VITALS: BP 134/78; PULSE 62; TEMP 37.2; O2SAT 95
[2017-09-06] MEDS: ISOSORBIDE MONONITRATE 30 MG TABCR PO SCH (09:10)
[2017-09-06] MEDS: DONEPEZIL HCL 10 MG TAB PO SCH (09:10)
[2017-09-06] MEDS: CARBIDOPA/LEVODOPA 25/100MG TAB PO SCH ×3 (09:10→21:46)
[2017-09-06] MEDS: ASPIRIN 81 MG ECTAB PO SCH (09:10)
[2017-09-06] MEDS: MEMANTINE 10 MG TAB PO SCH ×2 (09:10→21:47)
[2017-09-06] MEDS: LISINOPRIL 5 MG TAB PO SCH (09:12)
[2017-09-06] MEDS: OSELTAMIVIR PHOSPHATE 6 MG/ML SUSP PO SCH ×2 (09:12→21:51)
[2017-09-06 11:45] VITALS: BP 113/53; PULSE 67; TEMP 37.9; O2SAT 94
[2017-09-06 15:15] VITALS: BP 97/57; PULSE 61; TEMP 36.7; O2SAT 94
[2017-09-06] MEDS: WARFARIN SOD 3 MG TAB PO SCH (16:11)
--- NOTE | 2017-09-06 16:32 | Palliative Care Progress Note ---
Palliative Care Progress Note Date of Service Sep 06, 2017. Subjective Consult received. Meeting with patient and daughter, Angie, tomorrow at 1pm.
[2017-09-06 19:09] VITALS: BP 94/58; PULSE 63; TEMP 36.4; O2SAT 96
[2017-09-06] MEDS ORDERED: NURSING DECISION MEDICATION ORDER SCH (19:45)
--- NOTE | 2017-09-06 20:15 | Progress Note ---
Subjective Date of Service: Sep 06, 2017. Subjective Patient is more awake alert today I did speak with his sister at the bedside, she brought up the fact that he was previously was on hospice care in light to reengage with hospice. The patient himself has no complaints Problem List Medical Problems: (1) Altered mental status Status: Acute (2) Hypotension Status: Acute (3) Influenza-like symptoms Status: Acute Review of Systems Constitutional: No fever, No chills, No weakness, No fatigue Respiratory: + cough, No shortness of breath, No dyspnea on exertion Cardiac: No chest pain, No PND, No edema Abdomen: No pain, No nausea, No vomiting, No diarrhea Objective Vital Signs Date Time Temp Pulse Resp B/P (MAP) Pulse Ox O2 Delivery O2 Flow Rate FiO2 09/06/17 08:10 37.2 62 16 134/78 (96) 95 Nasal Cannula 2.0 09/06/17 04:00 Room Air 09/06/17 03:35 37.1 61 14 130/64 (86) 95 Room Air 09/06/17 00:00 Room Air 09/05/17 23:35 37.8 67 17 118/53 (74) 95 Room Air 09/05/17 20:00 Room Air 09/05/17 19:53 37.2 65 18 128/63 (84) 98 Room Air 09/05/17 18:10 Room Air 09/05/17 16:00 Room Air 09/05/17 15:20 36.7 61 18 105/54 (71) 95 Room Air 09/05/17 14:50 37.1 09/05/17 13:03 Room Air 09/05/17 11:55 37.8 60 14 137/82 (100) 100 Nasal Cannula 2.0 Physical Exam General Appearance: WD/WN, + mild distress Eyes: normal inspection, PERRL, EOMI, sclerae normal Respiratory/Chest: chest non-tender, + decreased breath sounds, + accessory muscle use, + rhonchi Cardiovascular: regular rate, rhythm, no murmur Abdomen: normal bowel sounds, non tender, soft Extremities: no pedal edema, no calf tenderness Laboratory Results Last 24 Hours Test 09/06/17 06:19 Prothrombin Time 17.9 SECONDS Prothromb Time International Ratio 1.7 Assessment and Plan 87 y/o M febrile illness and metabolic encephalopathy from influenza A, past Hx dementia, CAD, CKD IV, anemia, HTN, PAF, bradycardia - pacer, Parkinson. The pt was febrile and hypotensive on arrival to the ER. considering sepsis, He responded to a fluid bolus. INfluenza A - Tamiflu flu PCR positive resolving sepsis or Sirs. Patient has had stable blood pressure and will discontinue intravenous fluids Parkinson with dementia -patient's function is improved a sepsis has resolved, continue Sinemet, Donepezil acute renal failure, resolved, now CKD IV - creat continues to be at baseline HTN - Lasix continues to be held - Lisinopril, Atenolol CAD - no evidence of ACS currently - cont ASA, statin, Imdur, Atenolol PAF -rate controlled with Atenolol - Coumadin for full anticoagulation, pacemaker interrogated normal functioning Ulcer R lat LE - wound care to be consulted Hospice care evaluation per family request
[2017-09-06] MEDS: ATORVASTATIN 10 MG TAB PO SCH (21:46)
[2017-09-06 23:33] VITALS: BP 118/70; PULSE 70; TEMP 36.9; O2SAT 98
[2017-09-07 03:30] VITALS: BP 124/53; PULSE 64; TEMP 36.9; O2SAT 96
[2017-09-07 07:12] LABS: INR 1.4 (0.9-1.1)
[2017-09-07 07:36] LABS: CREATININE 0.98 mg/dl (0.60-1.40)
[2017-09-07 08:14] VITALS: BP 117/50; PULSE 62; TEMP 36.9; O2SAT 96
[2017-09-07] MEDS: ASPIRIN 81 MG ECTAB PO SCH (08:47)
[2017-09-07] MEDS: OSELTAMIVIR PHOSPHATE 6 MG/ML SUSP PO SCH ×2 (08:47→20:52)
[2017-09-07] MEDS: DONEPEZIL HCL 10 MG TAB PO SCH (08:47)
[2017-09-07] MEDS: MEMANTINE 10 MG TAB PO SCH ×2 (08:48→20:52)
[2017-09-07] MEDS: LISINOPRIL 5 MG TAB PO SCH (08:48)
[2017-09-07] MEDS: CARBIDOPA/LEVODOPA 25/100MG TAB PO SCH ×3 (08:48→20:52)
[2017-09-07] MEDS: ISOSORBIDE MONONITRATE 30 MG TABCR PO SCH (08:48)
--- NOTE | 2017-09-07 09:17 | Clinical Documentation Query ---
CLINICAL DOCUMENTATION QUERY Dr. LAYTON, In your clinical opinion is this patient being managed for: ( ) Pressure ulcer of right lateral malleolar, stage 3, POA ( ) Not Agree ( ) Other explanation of clinical findings (Please Explain) ( ) Unable to determine (Please Define) ( ) Need to Discuss The medical record reflects the following clinical findings, treatment, and risk factors. Clinical Indicators: 87 yo male presenting with influenza A. Noted to have a nonhealing RLE ulcer. H/P documented "ulcer -stage III" Treatment: WOCN consult, cleanse with NSS, aquacel AG and cover with foam dressing, change q 2 days Risk Factors: age, CAD, CKD, HTN, Parkinsons, dementia Please clarify and document your clinical opinion in the progress notes and discharge summary. Terms such as "probable", "suspected", "likely", "questionable", "possible", or "still to be ruled out" are acceptable. IF IN AGREEMENT, YOU MUST DOCUMENT ABOVE DIAGNOSTIC STATEMENT IN DAILY PROGRESS NOTES AND DISCHARGE SUMMARY. This document is not part of the patient's record. Thank You, Chery Eisenberg, RN [phone]
[2017-09-07 11:42] VITALS: BP 144/47; PULSE 60; TEMP 37.2; O2SAT 96
--- NOTE | 2017-09-07 13:29 | Palliative Care Consultation ---
Consultation Date of Consultation: Sep 07, 2017. Requesting Physician: Dr. Noe Attending Physician: Dr. Noe Reason for Consultation: Goals of care, code status History of Present Illness This 87 year old male patient with PMH advanced/end-stage dementia, Parkinson's disease, CAD s/p CABG, CKD stage IV, and others listed below, presented to the hospital three days ago with c/o fever, flu-like symptoms, and lethargy. Patient tested positive for Influenza A. Patient was on hospice care at home where he lives with his daughter and son-in-law. Patient's daughter wants him to be treated for the flu and wanted him to receive IVF. He was noted to have some abnormalities (which I'm not certain of) on telemetry per the daughter, so he was admitted to tele floor. Patient is listed as a full code. Since admission , he has been confused with severe physical deconditioning. Palliative care is consulted to establish goals of care. I met with the patient's daughter, Angie, and patient in room 203. Patient is sitting in chair, slumped over but awake. Appears frail, elderly, pale. His VS are stable, but patient really not able to participate in meaningful conversation. Angie and I continued our conversation outside of room. We had a discussion about goals of care and especially hospice care-- their philosophy of comfort, staying out of hospital, and to eventually peacefully. Angie is concerned that her father has had such a rapid decline with the flu, since she states that normally he is awake, talkative and able to ambulate small distances with assistance. We discussed that the flu is a serious illness and takes time to recover from, but also that the patient is 87 years old with multiple end-stage comorbidities and may not ever fully recover. Angie agreed and stated, "That's kind of what I've been thinking and afraid of." We talked about code status. Angie states that patient always said he wanted to be a DNR, so she would like to honor that wish. After further discussion, she confirms that comfort and hospice care is still the goal. See plan below. Past Medical/Surgical History Medical History: CAD - CABG x4 vessels 1990 CKD IV Bradycardia - pacer placement Paroxysmal AF HTN Advanced dementia Parkinson disease Prostate CA Anemia - baseline Hb 9-10 Nonhealing ulcer RLE - lat malleolar Surgical History: Cholecystectomy - 2000 Prostatectomy - 1993 CABG - 1990 Pacer placement 2007 Social History Smoking Status: Never Smoker History of Alcohol Use: No Drug Use: none Marital Status: Occupation Status: retired Review of Systems unable to obtain due to AMS Allergies Coded Allergies: No Known Allergies (Verified , 09/04/17) Medications Current Inpatient Medications Medications (Trade) Dose Ordered Sig/Maritza Route Start Time Stop Time Status Last Admin Dose Admin Oseltamivir Phosphate (Tamiflu Susp) 30 mg BID PO 09/04/17 16:45 09/09/17 16:44 09/07/17 08:47 30 MG Acetaminophen (Tylenol Tab) 650 mg Q4H PRN PO 09/04/17 13:30 10/04/17 13:29 Al Hydrox/Mg Hydrox/Simethicone (Maalox Max Susp) 15 ml Q4H PRN PO 09/04/17 13:30 10/04/17 13:29 Magnesium Hydroxide (Milk Of Magnesia Susp) 30 ml Q12H PRN PO 09/04/17 13:30 10/04/17 13:29 Ondansetron HCl (Zofran Inj) 4 mg Q6H PRN IV 09/04/17 13:30 10/04/17 13:29 Morphine Sulfate (MoRPHine SULFATE INJ) 2 mg Q30M PRN IV 09/04/17 13:30 09/18/17 13:29 Polyethylene (Miralax Powder Packet) 17 gm DAILY PRN PO 09/04/17 13:30 10/04/17 13:29 09/06/17 16:12 17 GM Aspirin (Ecotrin Tab) 81 mg QAM PO 09/05/17 09:00 10/05/17 08:59 09/07/17 08:47 81 MG Atenolol (Tenormin Tab) 50 mg QAM PO 09/05/17 09:00 10/05/17 08:59 09/07/17 08:48 50 MG Atorvastatin Calcium (Lipitor Tab) 10 mg QPM PO 09/04/17 21:00 10/04/17 20:59 09/06/17 21:46 10 MG Donepezil HCl (Aricept Tab) 10 mg QAM PO 09/05/17 09:00 10/05/17 08:59 09/07/17 08:47 10 MG Isosorbide Mononitrate (Imdur Ext Rel Tab) 30 mg QAM PO 09/05/17 09:00 10/05/17 08:59 09/07/17 08:48 30 MG Carbidopa/Levodopa (Sinemet 25/ 100MG Tab) 2 tab TID PO 09/04/17 14:00 10/04/17 13:59 09/07/17 08:48 2 TAB Lisinopril (Zestril Tab) 5 mg DAILY PO 09/05/17 09:00 10/05/17 08:59 09/06/17 09:12 5 MG Memantine (Namenda Tab) 10 mg BID PO 09/04/17 21:00 10/04/17 20:59 09/07/17 08:48 10 MG Warfarin Sodium (Coumadin Tab) 4 mg DAILY@1600 PO 09/07/17 16:00 10/05/17 15:59 Physical Exam Date Time Temp Pulse Resp B/P (MAP) Pulse Ox O2 Delivery O2 Flow Rate FiO2 09/07/17 12:00 Room Air 09/07/17 11:42 37.2 60 18 144/47 (79) 96 Room Air 09/07/17 08:14 36.9 62 18 117/50 (72) 96 09/07/17 08:00 Room Air 09/07/17 04:00 Room Air 09/07/17 03:30 36.9 64 18 124/53 (76) 96 Room Air 09/07/17 00:01 Room Air 09/06/17 23:33 36.9 70 17 118/70 (86) 98 Room Air 09/06/17 20:00 Room Air 09/06/17 19:09 36.4 63 16 94/58 (70) 96 Room Air 09/06/17 18:32 Room Air 09/06/17 15:15 36.7 61 16 97/57 (70) 94 Room Air General Appearance: no apparent distress, + pertinent finding (frail, elderly) ENT: hearing grossly normal Neck: supple, no JVD Respiratory: no respiratory distress, no accessory muscle use Cardiovascular: regular rate, rhythm, no edema Abdomen: normal bowel sounds, soft Neurologic/Psychiatric: alert, + disoriented Skin: + pallor Laboratory Results Last 24 Hours Test 09/07/17 06:21 09/07/17 06:22 09/07/17 11:23 Prothrombin Time 14.8 SECONDS Prothromb Time International Ratio 1.4 Creatinine 0.98 mg/dl Est Creatinine Clear Calc Drug Dose 51.5 ml/min Estimated GFR () 81.2 Estimated GFR (Non- 70.0 Bedside Glucose 178 mg/dl Assessment & Plan Palliative Performance Scale: 30 % Problem list: Altered mental status- End-stage dementia and Parkinson's Influenza A Hx CAD, CKD stage IV, anemia, htn, PAF, bradycardia with pacemaker MANFRED on CKD RLE ulcer Goals of care Palliative care recs: discussed with patient's daughter and Dr. Noe. -Patient is DNR per patient's daughter, Angie. I discussed this in detail with her. -Goal is for comfort, stay out of the hospital, and to return home on hospice. -Had lengthy discussion with patient's daughter about progression of disease and end of life. We talked about hospice care- their philosophy, service provided, etc. Daughter states that the goal truly is for comfort and she would like to stick with hospice. -Daughter may want to change hospice agencies. I provided her a list of agencies in the area and asked case management to follow up. -Patient is transferring out of telemetry unit. Thank you kindly for this consult. I will follow as needed. Total time spent 50 minutes. Greater than 50% of time with the patient was spent on counseling and coordinating care.
[2017-09-07 13:54] VITALS: BP 104/55; PULSE 59; TEMP 36.5
[2017-09-07 14:00] VITALS: O2SAT 99
[2017-09-07] MEDS ORDERED: WARFARIN SOD 4 MG TAB PO SCH (16:00)
--- NOTE | 2017-09-07 17:55 | Progress Note ---
Subjective Date of Service: Sep 07, 2017. Subjective Patient is seen in the company of his sister he is having difficulty moving on bearing weight is 2 person assist to sister seems comfortable with this and is encouraged to get him home soon as possible. the pt himself has no complaints Problem List Medical Problems: (1) Altered mental status Status: Acute (2) Hypotension Status: Acute (3) Influenza-like symptoms Status: Acute Review of Systems Constitutional: + weakness, + fatigue, No fever, No chills Respiratory: No cough, No shortness of breath Cardiac: No chest pain, No edema Abdomen: No pain, No vomiting, No diarrhea Male : No dysuria, No urinary frequency Neurologic: + memory loss, + weakness, + balance problems Objective Vital Signs Date Time Temp Pulse Resp B/P (MAP) Pulse Ox O2 Delivery O2 Flow Rate FiO2 09/07/17 14:00 99 Room Air 09/07/17 13:54 36.5 59 18 104/55 (71) 09/07/17 12:00 Room Air 09/07/17 11:42 37.2 60 18 144/47 (79) 96 Room Air 09/07/17 08:14 36.9 62 18 117/50 (72) 96 09/07/17 08:00 Room Air 09/07/17 04:00 Room Air 09/07/17 03:30 36.9 64 18 124/53 (76) 96 Room Air 09/07/17 00:01 Room Air 09/06/17 23:33 36.9 70 17 118/70 (86) 98 Room Air 09/06/17 20:00 Room Air 09/06/17 19:09 36.4 63 16 94/58 (70) 96 Room Air 09/06/17 18:32 Room Air Physical Exam General Appearance: WD/WN, + moderate distress Eyes: normal inspection, sclerae normal Respiratory/Chest: chest non-tender, no respiratory distress, + decreased breath sounds Cardiovascular: regular rate, rhythm, no murmur Abdomen: normal bowel sounds, non tender, soft Extremities: no pedal edema, no calf tenderness Neurologic/Psychiatric: alert, + depressed affect Laboratory Results Last 24 Hours Test 09/07/17 06:21 09/07/17 06:22 09/07/17 11:23 Prothrombin Time 14.8 SECONDS Prothromb Time International Ratio 1.4 Creatinine 0.98 mg/dl Est Creatinine Clear Calc Drug Dose 51.5 ml/min Estimated GFR () 81.2 Estimated GFR (Non- 70.0 Bedside Glucose 178 mg/dl Assessment and Plan 87 y/o M febrile illness and metabolic encephalopathy from influenza A, past Hx dementia, CAD, CKD IV, anemia, HTN, PAF, bradycardia - pacer, Parkinson. The pt was febrile and hypotensive on arrival to the ER. considering sepsis, He responded to a fluid bolus. INfluenza A - Tamiflu flu PCR positive resolving sepsis or Sirs. Patient has had stable blood pressure has had clearing of his mental status less coughing and pulmonary symptoms Parkinson with dementia -patient's function is improved a sepsis has resolved isn't exhibiting peripheral signs of parkinsonism with stiffness to his movements and lack of expression of his face, continue Sinemet, Donepezil acute renal failure, resolved, now CKD IV - creat continues to be at baseline HTN - Lasix continues to be held - Lisinopril, Atenolol CAD - no evidence of ACS currently - cont ASA, statin, Imdur, Atenolol PAF -rate controlled with Atenolol - Coumadin for full anticoagulation, pacemaker interrogated normal functioning Ulcer R lat LE - this is to be documented pressure ulcer right lateral more well with our, stage III, POA wound care is following Hospice care evaluation per family request Patiently moved to medical floor physical therapy and at the fascial therapy evaluation will be evaluated to determine if the patient is appropriate for returning to home
[2017-09-07] MEDS: ATORVASTATIN 10 MG TAB PO SCH (20:51)
[2017-09-08 00:30] VITALS: BP 149/72; PULSE 74; TEMP 37.2; O2SAT 98
[2017-09-08] MEDS ORDERED: MICONAZOLE NITRATE POWDER 43 GM EXT PRN (06:00)
[2017-09-08 06:32] LABS: INR 1.4 (0.9-1.1)
[2017-09-08 06:46] LABS: CREATININE 0.95 mg/dl (0.60-1.40)
[2017-09-08 07:45] VITALS: BP 129/62; PULSE 61; TEMP 37.1; O2SAT 95
[2017-09-08 07:52] VITALS: O2SAT 95
[2017-09-08] MEDS: ASPIRIN 81 MG ECTAB PO SCH (08:11)
[2017-09-08] MEDS: DONEPEZIL HCL 10 MG TAB PO SCH (08:11)
[2017-09-08] MEDS: MEMANTINE 10 MG TAB PO SCH (08:12)
[2017-09-08] MEDS: OSELTAMIVIR PHOSPHATE 6 MG/ML SUSP PO SCH (08:12)
[2017-09-08] MEDS: CARBIDOPA/LEVODOPA 25/100MG TAB PO SCH (08:12)
[2017-09-08] MEDS: ISOSORBIDE MONONITRATE 30 MG TABCR PO SCH (08:12)
[2017-09-08] MEDS: LISINOPRIL 5 MG TAB PO SCH (08:13)
[2017-09-08] MEDS ORDERED: TMFS PO (09:12)
--- NOTE | 2017-09-08 09:16 | Discharge Instructions ---
Discharge Instructions Date of Service Sep 08, 2017. Admission Reason for Admission: Fever,Lethargy Discharge Discharge Diagnosis / Problem: influenza infection and metabolic encephalopathy Discharge Goals Goal(s): Diagnostic testing, Therapeutic intervention Activity Recommendations Activity Limitations: as noted below Lifting Limitations: gradually increase as tolerated INfluenza A - Tamiflu finish 5 additional doses Parkinson with dementia -patient's function is improved continue Sinemet, Donepezil acute renal failure, resolved, however do not restart lasix and potassium, although listed unless blood pressure at home is acceptable and pt is eating and drinking well HTN - Lasix continues to be held - Lisinopril, Atenolol Coumadin for full anticoagulation, the pt's coumadin level is low and I suspect will not be up until the week of 09/13, please have blood checked sometime that week pacemaker interrogated -->normal functioning Ulcer right lower leg, work to prevent leg crossing and provide gentle skin care to that site Current Hospital Diet Patient's current hospital diet: AHA Diet (Heart Healthy) Discharge Diet Recommended Diet: Regular Diet Pending Studies Studies pending at discharge: no Laboratory Results Hemoglobin A1c Test 06/29/17 14:00 Range/Units Estimated Average Glucose 108 mg/dl Hemoglobin A1c 5.4 4.5-5.6 % Medical Emergencies . Who to Call and When: Medical Emergencies: If at any time you feel your situation is an emergency, please call 911 immediately. . Non-Emergent Contact Non-Emergency issues call your: Primary Care Provider Call Non-Emergent contact if: temperature is above 101, your pain is unusual for you . . "Provider Documentation" section prepared by Orville Noe. . VTE Core Measure Inpt VTE Proph given/why not?: Unfractionated heparin SQ
[2017-09-08 11:01] VITALS: BP 129/62; PULSE 61; TEMP 37.1; O2SAT 95
--- NOTE | 2017-09-08 18:47 | Discharge Summary ---
Discharge Summary Date of Service Sep 08, 2017. Discharge Summary Admission Date: Sep 04, 2017 at 13:28 Discharge Date: Sep 08, 2017 Discharge Disposition: Home with services Principal Diagnosis: acute influenza with metabolic encephalopathy Immunizations: Have You Had Influenza Vaccine: Yes Influenza Vaccine Date: May 16, 2007 History of Tetanus Vaccine?: Yes History of Pneumococcal: Yes History of Hepatitis B Vaccine: No Medication Reconciliation New Medications: Oseltamivir Phosphate (Tamiflu) 6 Mg/Ml Susp 30 MG PO BID, #5 DOSE Continued Medications: Acetaminophen (Tylenol) 325 Mg Tab 650 MG PO Q4H PRN for Pain or Fever, #30 TAB Aspirin (Aspirin EC Low Dose) 81 Mg Ectab 81 MG PO QAM for 90 Days Atenolol (Atenolol) 50 Mg Tab 50 MG PO QAM for 90 Days, TAB Atorvastatin (Lipitor) 20 Mg Tab 10 MG PO QPM, 0 Refills Cholecalciferol (Vitamin D3) 3,000 Unit Tab 1 TAB PO BID Donepezil HCl (Donepezil HCl) 10 Mg Tab 10 MG PO QAM for 90 Days, TAB Furosemide (Lasix) 20 Mg Tab 1 TAB PO DAILY for 90 Days, #90 TAB Isosorbide Mononitrate (Isosorbide Mononitrate ER) 30 Mg Tabcr 30 MG PO QAM for 90 Days Levodopa/Carbidopa (Sinemet 25MG/100MG) 1 Ea Tab 2 TAB PO TID for 90 Days, TAB Lisinopril (Zestril) 10 Mg Tab 5 MG PO PRN for Documentation, 0 Refills NEEDED FOR ELEVATED BP. Memantine (Namenda) 10 Mg Tab 10 MG PO BID for 90 Days, TAB Multiple Vitamins W/ Minerals (Airborne) 1 Tab Tab 500 MG PO QAM Multiple Vitamins W/ Minerals (Emergen-C Vitamin C) 1 Chw Chw 500 MG PO BID Potassium Chloride (Micro-K Ext Rel) 10 Meq Capcr Unknown Dose PO BID, CAP Probiotic Product (Probiotic) 1 Cap Cap 1 CAP PO DAILY Warfarin Sodium (Coumadin) 3 Mg Tab 1 TAB PO DAILY for 30 Days, #30 TAB 5 Refills TO BE TAKEN WITH A 4 MG TAB = 7MG DOSE Warfarin Sodium (Coumadin) 4 Mg Tab 1 TAB PO DAILY for 30 Days, #30 TAB 3 Refills TO BE TAKEN WITH A 3 MG TAB = 7MG DOSE Zinc Gluconate (Zinc) 50 Mg Tab 1 TAB PO DAILY [Vit B-12] () 1 TAB PO DAILY, 0 Refills Discharge Exam Review of Systems: Constitutional: No fever, No chills, No sweats Respiratory: + cough, No sputum, No dyspnea on exertion Neurologic: + balance problems, + problem reported (some stiffness associated with his Parkinson's) Psychiatric: No depression symptoms, No anhedonism Physical Exam: General Appearance: WD/WN, no apparent distress Eyes: normal inspection, PERRL, sclerae normal Respiratory/Chest: chest non-tender, lungs clear, normal breath sounds Hospital Course 87 y/o M febrile illness and metabolic encephalopathy from influenza A, past Hx dementia, CAD, CKD IV, anemia, HTN, PAF, bradycardia - pacer, Parkinson. The pt was febrile and hypotensive on arrival to the ER. considering sepsis, He responded to a fluid bolus. INfluenza A - Tamiflu flu PCR positive resolved Sepsis. Patient has had stable blood pressure has had clearing of his mental status less coughing and pulmonary symptoms Parkinson with dementia -patient's function is improved a sepsis has resolved exhibiting peripheral signs of parkinsonism with stiffness to his movements and lack of expression of his face, continue Sinemet, Donepezil family feels her comfortable having the patient return home feel they're more capable of pursuing therapy as they know this patient well they did see him attempt to move in reviewing no is a 2 person assist despite this there comfort taking him home acute renal failure, resolved, now CKD IV - creat continues to be at baseline HTN - Lasix continues to be held I instructed the patient's family to hold his Lasix and potassium until he is taking oral intake equivalent to his preillness state we will however continue- Lisinopril, Atenolol CAD - no evidence of ACS currently - cont ASA, statin, Imdur, Atenolol PAF -rate controlled with Atenolol - Coumadin for full anticoagulation his level is low at time of discharge he is recommended to have INR checks next week , pacemaker interrogated normal functioning pressure ulcer right lateral more well with our, stage III, POA patient's daughter is aware of this wound she states it's been present for at least one year to continue to attempt to have pressure relief to help it heal Hospice care evaluation per family request Total Time Spent: Greater than 30 minutes This includes examination of the patient, discharge planning, medication reconciliation, and communication with other providers. Discharge Instructions Please refer to the electronic Patient Visit Report (Discharge Instructions) for additional information.
== END 2017-09-08 11:36 | disposition hospice, home (50) | DRG 871 ==
LOC: C.EDB 10:00 → C.2E 13:28 → EDBEDREQ 15:36 → ENRESERV 16:02 → C.4E 09-07 13:40
PROVIDERS: ADMIT Internal Medicine; ATTEND Internal Medicine
DX: A41.89 Other specified sepsis (principal); G93.41 Metabolic encephalopathy; L89.503 Pressure ulcer of unspecified ankle, stage 3; R65.20 Severe sepsis without septic shock; Z51.5 Encounter for palliative care; N18.4 Chronic kidney disease, stage 4 (severe); N17.9 Acute kidney failure, unspecified; J10.89 Influenza due to other identified influenza virus with other manifestations; G20 Parkinson's disease; F03.90 Unspecified dementia, unspecified severity, without behavioral disturbance, psychotic disturbance, mood disturbance, and anxiety; I25.10 Atherosclerotic heart disease of native coronary artery without angina pectoris; Z79.82 Long term (current) use of aspirin; Z79.01 Long term (current) use of anticoagulants; I12.9 Hypertensive chronic kidney disease with stage 1 through stage 4 chronic kidney disease, or unspecified chronic kidney disease; I48.0 Paroxysmal atrial fibrillation; Z95.0 Presence of cardiac pacemaker; Z95.1 Presence of aortocoronary bypass graft; Z85.46 Personal history of malignant neoplasm of prostate

== ENCOUNTER → 2017-09-16 | Outpatient (CLI) | payer OTHER, BC ==
[~2017-09-16] MED LIST changes: -CEPH500C PO; +CHOL1TAB12 PO; -CMD4 PO; +MISCCAP80 PO; -MRLP17 PO; +MULT-920 PO; +MULT1CHW84 PO; +POTA10CA28 PO; +TMFS PO; -VTMD1000 PO; +WARF3TAB PO; +WARF4TAB PO; +ZINC1TAB PO
[2017-09-16 15:33] LABS: ALBUMIN 2.8 gm/dl (3.4-5.0); ALT/SGPT 17 U/L (12-78); BLOOD UREA NITROGEN 30 mg/dl (7-18); CALCIUM 8.7 mg/dl (8.5-10.1); CARBON DIOXIDE 27 mmol/L (21-32); CREATININE 1.12 mg/dl (0.60-1.40); GLUCOSE 119 mg/dl (70-99); POTASSIUM 4.1 mmol/L (3.5-5.1); SODIUM 142 mmol/L (136-145)
[2017-09-16 15:36] LABS: ALKALINE PHOSPHATASE 64 U/L (45-117); AST/SGOT 37 U/L (15-37); INR 3.1 (0.9-1.1); TOTAL PROTEIN 7.2 gm/dl (6.4-8.2)
[2017-09-16 15:45] LABS: HEMATOCRIT 20.1 % (42-52); HEMOGLOBIN 6.4 g/dL (14.0-18.0); MEAN CELL VOLUME 96.2 fL (80-100); MEAN CORPUSCULAR HEMOGLOBIN 30.6 pg (25-34); MEAN CORPUSCULAR HGB CONC 31.8 g/dl (32-36); MEAN PLATELET VOLUME 8.4 fL (7.4-10.4); PLATELET COUNT 393 K/uL (130-400); RED CELL DISTRIBUTION WIDTH CV 15.1 % (11.5-14.5); RED CELL DISTRIBUTION WIDTH SD 52.4 fL (36.4-46.3); WHITE BLOOD COUNT 12.52 K/uL (4.8-10.8)
[2017-09-16 15:58] LABS: BASO % 0.2 %; BASO ABS # 0.02 K/uL (0-0.2); EOS % 1.8 %; EOS ABS # 0.23 K/uL (0-0.5); IG# 0.04 K/uL (0.00-0.02); LYMPH % 13.7 %; LYMPH ABS # 1.72 K/uL (1.2-3.4); MONO % 6.5 %; MONO ABS # 0.82 K/uL (0.11-0.59); NEUT % 77.5 %; NEUT ABS # 9.69 K/uL (1.4-6.5)
== END | disposition home or self-care (01) ==
LOC: C.LABSPEC 14:49
PROVIDERS: ATTEND Internal Medicine
DX: I48.0 Paroxysmal atrial fibrillation (principal); Z79.01 Long term (current) use of anticoagulants; L03.116 Cellulitis of left lower limb

== ENCOUNTER → 2017-09-23 | Outpatient (CLI) | payer OTHER, BC ==
[~2017-09-23] MED LIST changes: -MULT1CHW84 PO; -TMFS PO
[2017-09-23 14:51] LABS: BASO % 0.2 %; BASO ABS # 0.02 K/uL (0-0.2); EOS % 2.3 %; EOS ABS # 0.25 K/uL (0-0.5); HEMATOCRIT 32.4 % (42-52); HEMOGLOBIN 10.3 g/dL (14.0-18.0); IG# 0.04 K/uL (0.00-0.02); LYMPH % 19.5 %; LYMPH ABS # 2.11 K/uL (1.2-3.4); MEAN CELL VOLUME 95.3 fL (80-100); MEAN CORPUSCULAR HEMOGLOBIN 30.3 pg (25-34); MEAN CORPUSCULAR HGB CONC 31.8 g/dl (32-36); MEAN PLATELET VOLUME 8.9 fL (7.4-10.4); MONO ABS # 0.97 K/uL (0.11-0.59); NEUT % 68.6 %; NEUT ABS # 7.44 K/uL (1.4-6.5); PLATELET COUNT 349 K/uL (130-400); RED CELL DISTRIBUTION WIDTH SD 51.7 fL (36.4-46.3); WHITE BLOOD COUNT 10.83 K/uL (4.8-10.8)
[2017-09-23 15:02] LABS: ALBUMIN 2.9 gm/dl (3.4-5.0); ALT/SGPT 20 U/L (12-78); AST/SGOT 31 U/L (15-37); BLOOD UREA NITROGEN 29 mg/dl (7-18); CALCIUM 9.1 mg/dl (8.5-10.1); CARBON DIOXIDE 31 mmol/L (21-32); CREATININE 1.17 mg/dl (0.60-1.40); GLUCOSE 112 mg/dl (70-99); POTASSIUM 3.9 mmol/L (3.5-5.1); SODIUM 138 mmol/L (136-145)
[2017-09-23 15:04] LABS: ALKALINE PHOSPHATASE 70 U/L (45-117); TOTAL PROTEIN 8.1 gm/dl (6.4-8.2)
== END | disposition home or self-care (01) ==
LOC: C.LABSPEC 14:41
PROVIDERS: ATTEND Internal Medicine
DX: D64.9 Anemia, unspecified (principal); L03.111 Cellulitis of right axilla